=== PATIENT | male | born 1960 | race African-American/Black ===

== ENCOUNTER 2017-05-16 05:20 | Inpatient (IN) | payer SELFPAY ==
[~2017-05-16] VITALS: Ht 193 cm; Wt 86.2 kg
[2017-05-16] VITALS (17 sets, daily range): BP systolic 109–202; BP diastolic 65–130
[~2017-05-16 05:20] MED LIST: FLEXERIL PO; ULTRAM50 M1 PO
[2017-05-16 06:50] LABS: HEMATOCRIT 40.2 % (39.0-50.0); IMMATURE GRANULOCYTES 0.3 % (0.0-1.0); MEAN CORPUSCULAR HGB 30.7 pG CALC (26.0-32.0); MEAN CORPUSCULAR HGB CONC 32.3 g/L CALC (32.0-36.0); NEUT# 4.99 thou/uL (1.82-7.42); RED BLOOD COUNT 4.23 mill/uL (4.70-6.10); RED CELL DISTRI WIDTH 14.7 % (11.5-15.5)
[2017-05-16 06:59] LABS: ALBUMIN 3.5 g/dL (3.2-5.0); ALKALINE PHOSPHATASE 394 u/l (38-126); AMYLASE 62 u/l (30-110); ANION GAP 18 (6-22 (CALC)); BILIRUBIN, TOTAL 1.3 mg/dL (0.0-1.4); BUN 28 mg/dL (9-20); BUN/CREATININE RATIO 22 (12-20 (CALC)); CARBON DIOXIDE 25 mmol/l (22-30); CHLORIDE 104 mmol/l (95-108); CREATININE 1.3 mg/dL (0.7-1.3); GFR 57 ML/MIN (>=60 (CALC)); GFR FOR AFR.AMER. > 60 ML/MIN (>=60 (CALC)); LIPASE 86 u/l (23-300); POTASSIUM 4.5 mmol/l (3.5-5.1); SGOT/AST 150 u/l (17-59); SGPT/ALT 86 u/l (21-72); SODIUM 142 mmol/l (137-146); TOTAL PROTEIN 9.1 g/dL (6.3-8.2)
[2017-05-16 07:11] LABS: MYOGLOBIN 315 ng/mL (0 - 121)
[2017-05-16 07:51] LABS: URINE BILIRUBIN - DIPSTICK NEGATIVE (NEGATIVE); URINE BLOOD DIPSTICK TRACE-INTACT (NEGATIVE); URINE COLOR YELLOW; URINE GLUCOSE - DIPSTICK NEGATIVE (NEGATIVE); URINE KETONE NEGATIVE (NEGATIVE); URINE LEUK ESTERASE NEGATIVE (NEGATIVE); URINE NITRITE - DIPSTICK NEGATIVE (Negative); URINE PROTEIN - DIPSTICK 30 mg/dL (NEG-TRACE); URINE SPECIFIC GRAVITY >=1.030
[2017-05-16 07:53] LABS: URINE CLARITY SL CLOUDY
[2017-05-16 07:54] LABS: URINE EPITHELIAL CELLS FEW EPI/hpf (0-FEW); URINE MUCUS MODERATE hpf (NONE-FEW); URINE RBC 0-2 RBC/hpf (0-5)
[2017-05-16 07:56] LABS: BARBITURATES NEGATIVE (NEGATIVE); COCAINE POSITIVE (NEGATIVE); METHADONE NEGATIVE (NEGATIVE); OXCYCODONE NEGATIVE (NEGATIVE); TETRAHYDROCANNABIONOL NEGATIVE (NEGATIVE); TRICYLIC ANTIDEPRESSANTS NEGATIVE (NEGATIVE)
[2017-05-16 12:33] LABS: HEMATOCRIT 41.3 % (39.0-50.0); HEMOGLOBIN 12.8 g/dl (14.0-18.0); MEAN CELL VOLUME 99.3 fL CALC (80.0-100.0); MEAN CORPUSCULAR HGB 30.8 pG CALC (26.0-32.0); RED BLOOD COUNT 4.16 mill/uL (4.70-6.10); RED CELL DISTRI WIDTH 14.8 % (11.5-15.5)
[2017-05-16 12:47] LABS: ACT PARTIAL THROMBO TIME 30.3 SECONDS (20.0-32.5); INTERNATIONAL NORMALIZED RATIO 1.6 RATIO (0.7-1.3); PROTHROMBIN TIME 17.5 SECONDS (9.0-12.5)
[2017-05-16 12:50] LABS: ANION GAP 26 (6-22 (CALC)); BUN 29 mg/dL (9-20); BUN/CREATININE RATIO 23 (12-20 (CALC)); CHLORIDE 109 mmol/l (95-108); CREATININE 1.3 mg/dL (0.7-1.3); GFR 57 ML/MIN (>=60 (CALC)); GFR FOR AFR.AMER. > 60 ML/MIN (>=60 (CALC)); MAGNESIUM 1.7 mg/dL (1.6-2.3); POTASSIUM 4.8 mmol/l (3.5-5.1); SODIUM 143 mmol/l (137-146)
[2017-05-16 12:51] LABS: CARBON DIOXIDE 13 mmol/l (22-30)
[2017-05-16 14:11] LABS: CHOLESTEROL HDL RATIO 7.9 (<4.4 (CALC))
[2017-05-17] VITALS (20 sets, daily range): BP systolic 13–188; BP diastolic 67–107
[2017-05-17 07:13] LABS: HEMATOCRIT 41.8 % (39.0-50.0); IMMATURE GRANULOCYTES 0.2 % (0.0-1.0); MEAN CELL VOLUME 99.8 fL CALC (80.0-100.0); MEAN CORPUSCULAR HGB CONC 31.1 g/L CALC (32.0-36.0); NEUT# 4.26 thou/uL (1.82-7.42); RED BLOOD COUNT 4.19 mill/uL (4.70-6.10)
[2017-05-17 08:26] LABS: ALKALINE PHOSPHATASE 297 u/l (38-126); BILIRUBIN, TOTAL 0.9 mg/dL (0.0-1.4); BUN 21 mg/dL (9-20); BUN/CREATININE RATIO 21 (12-20 (CALC)); CHLORIDE 110 mmol/l (95-108); GFR > 60 ML/MIN (>=60 (CALC)); GFR FOR AFR.AMER. > 60 ML/MIN (>=60 (CALC)); POTASSIUM 4.3 mmol/l (3.5-5.1); SGOT/AST 126 u/l (17-59); SGPT/ALT 78 u/l (21-72); SODIUM 143 mmol/l (137-146); TOTAL PROTEIN 7.4 g/dL (6.3-8.2)
[2017-05-17 08:29] LABS: ALBUMIN 2.7 g/dL (3.2-5.0); ANION GAP 15 (6-22 (CALC)); CARBON DIOXIDE 22 mmol/l (22-30)
[2017-05-18] VITALS (14 sets, daily range): BP systolic 127–174; BP diastolic 58–107
[2017-05-18 05:06] LABS: HEMATOCRIT 39.6 % (39.0-50.0); HEMOGLOBIN 12.8 g/dl (14.0-18.0); MEAN CELL VOLUME 95.9 fL CALC (80.0-100.0); MEAN CORPUSCULAR HGB CONC 32.3 g/L CALC (32.0-36.0); RED BLOOD COUNT 4.13 mill/uL (4.70-6.10); RED CELL DISTRI WIDTH 14.9 % (11.5-15.5)
[2017-05-18 05:10] LABS: ALBUMIN 3.1 g/dL (3.2-5.0); ALKALINE PHOSPHATASE 299 u/l (38-126); ANION GAP 15 (6-22 (CALC)); BILIRUBIN, TOTAL 0.8 mg/dL (0.0-1.4); BUN 19 mg/dL (9-20); BUN/CREATININE RATIO 20 (12-20 (CALC)); CARBON DIOXIDE 27 mmol/l (22-30); CHLORIDE 106 mmol/l (95-108); CREATININE 0.9 mg/dL (0.7-1.3); GFR > 60 ML/MIN (>=60 (CALC)); GFR FOR AFR.AMER. > 60 ML/MIN (>=60 (CALC)); POTASSIUM 4.5 mmol/l (3.5-5.1); SGOT/AST 137 u/l (17-59); SGPT/ALT 75 u/l (21-72); SODIUM 143 mmol/l (137-146); TOTAL PROTEIN 8.2 g/dL (6.3-8.2)
== END 2017-05-18 22:20 | disposition short-term general hospital (02) | DRG 291 ==
LOC: ED 05:20 → ED-I 09:57 → ED 10:15 → ICU 10:16
PROVIDERS: Emergency Medicine; Nurse Practitioner Family; ADMIT Internal Medicine; ATTEND Internal Medicine
PROC: 0BH17EZ Insertion of Endotracheal Airway into Trachea, Via Natural or Artificial Opening (ICD-10-PCS; principal; 2017-05-16)
PROC: 5A1935Z Respiratory Ventilation, Less than 24 Consecutive Hours (ICD-10-PCS; 2017-05-16)
PROC: 0T9B70Z Drainage of Bladder with Drainage Device, Via Natural or Artificial Opening (ICD-10-PCS; 2017-05-16)
DX: I50.21 Acute systolic (congestive) heart failure (principal); J96.01 Acute respiratory failure with hypoxia; E87.4 Mixed disorder of acid-base balance; F14.10 Cocaine abuse, uncomplicated; E11.9 Type 2 diabetes mellitus without complications; I10 Essential (primary) hypertension; R68.0 Hypothermia, not associated with low environmental temperature; F17.210 Nicotine dependence, cigarettes, uncomplicated; I16.0 Hypertensive urgency; I48.91 Unspecified atrial fibrillation; E16.2 Hypoglycemia, unspecified; B19.20 Unspecified viral hepatitis C without hepatic coma; Z72.89 Other problems related to lifestyle
CPT/HCPCS: J2060; Q9967; S0164

== ENCOUNTER 2017-09-27 13:45 | Inpatient (IN) | payer SELFPAY ==
[~2017-09-27] VITALS: Ht 193 cm; Wt 84.9 kg
--- NOTE | 2017-09-27 14:00 | NUR ---
PT REPORTS SMOKING COCAINE THIS AM W/HX OF SAME.
[2017-09-27 14:19] LABS: HEMATOCRIT 39.9 % (39.0-50.0); HEMOGLOBIN 13.1 g/dl (14.0-18.0); IMMATURE GRANULOCYTES 0.3 % (0.0-5.0); MEAN CELL VOLUME 91.9 fL CALC (80.0-100.0); MEAN CORPUSCULAR HGB 30.2 pG CALC (26.0-32.0); MEAN CORPUSCULAR HGB CONC 32.8 g/L CALC (32.0-36.0); NEUT# 5.18 thou/uL (1.82-7.42); RED BLOOD COUNT 4.34 mill/uL (4.70-6.10); RED CELL DISTRI WIDTH 14.8 % (11.5-15.5)
[2017-09-27 14:37] LABS: ALBUMIN 3.7 g/dL (3.2-5.0); BILIRUBIN, TOTAL 1.9 mg/dL (0.0-1.4); CREATININE 1.7 mg/dL (0.7-1.3); POTASSIUM 4.2 mmol/l (3.5-5.1)
[2017-09-27 14:43] LABS: TOTAL PROTEIN 10.7 g/dL (6.3-8.2)
--- NOTE | 2017-09-27 15:00 | NUR ---
PT ADVISED OF CURRENT POC. VOICED UNDERSTANDING. CALL LIGHT WITHIN REACH.
--- NOTE | 2017-09-27 16:00 | NUR ---
PT USING URING VOIDED APPROX 2000ML X2 USE.
--- NOTE | 2017-09-27 16:46 | NUR ---
PT RESTING ON LEFT SIDE IN BED W/HEAD COVERED. REQUEST FOOD. IV SITE HEALTHY. MEDICATED FOR CONTINUED ELEVATED BP. MAEW. NO C/O PAIN. RESP EVEN AND UNLABORED/
[2017-09-27] MEDS ORDERED: FUROSEMIDE40 MG PO (16:49)
--- NOTE | 2017-09-27 17:00 | NUR ---
PT PROVIDED W/SANDWICH AND JUICE FEEDS SELF GOOD APPETITE.
[2017-09-27 17:33] LABS: BARBITURATES NEGATIVE (NEGATIVE); COCAINE POSITIVE (NEGATIVE); METHADONE NEGATIVE (NEGATIVE); OXCYCODONE NEGATIVE (NEGATIVE); TETRAHYDROCANNABIONOL NEGATIVE (NEGATIVE); TRICYLIC ANTIDEPRESSANTS NEGATIVE (NEGATIVE)
--- NOTE | 2017-09-27 19:08 | NUR ---
SECOND TROPONIN OBTAINED. PT SLEEPING RESPONDS TO VERBAL STIMULI. THIS NURSE ASKED PT IF HE WAS OUT ALL NIGHT PT STATED YES AND HE USUALLY SLEEPS DURING THE DAY.
--- NOTE | 2017-09-27 19:23 | NUR ---
INTRODUCED SELF TO PATIENT. PATIENT IS SOMNOLENT AND AROUSES WITH STIMULATION. PUPILS ARE PINPOINT. PATIENT ABLE TO SPEAK ONCE MORE AWAKE. PATIENT IS ON SINUS TACH ON THE MONITOR WITH SOME PVC AND PAC. RATE IN BETWEEN 120-136. PATIENT HAS EDEMA FROM HIS WAIST DOWN. STATES THAT HAS BEEN THERE FOR A FEW DAYS. STATES HE HAS CHF. ADMITS TO DRUG USE OVER THE LAST SEVERAL DAYS.
--- NOTE | 2017-09-27 19:25 | NUR ---
PATIENT MEDICATED WITH NORVASC. PATIENT STATES HE IS FREEXING AND WET. PATIENT FOUND TO BE SATURATED IN URINE, CLOTHING AND SHEETS ARE WET. PATIENT CLEANED, LINENS CHANGED AND GIVEN WARM BLANKET. PATIENT AWARE OF ADMISSION.
--- NOTE | 2017-09-27 19:26 | NUR ---
WHEN PATIENT'S CLOTHING WAS REMOVED HE STATED HE HAD A LARGE SUM OF DOOLEY IN HIS POCKETS. OFFERED TO HAVE MONEY PUT IN SAFE. HE STATED HE WANTED TO KEEP IT. PATIENT WITNESSED NURSE REMOVE SHORTS AND UNDERWEAR AND PLACE IN A BAG.
--- NOTE | 2017-09-27 20:05 | NUR ---
PATIENT RESTING ON STRETCHER. HAS NOT TOUCHED HIS FOOD. PATIENT IS SLEEPING BUT AROUSABLE WITH STIMULATION.
--- NOTE | 2017-09-27 20:40 | NUR ---
REPORT GIVEN TO SWETHA AQUINO IN ICU. PATIENT READIED FOR TRANSPORT TO THE FLOOR VIA STRETCHER, ON MONITOR, WITH RN.
[2017-09-27 20:56] VITALS: BP 157/97
--- NOTE | 2017-09-27 20:56 | NUR ---
57 yr old black male admitted icu7 per stretcher from er. transferred x3 to bed. bed weight obtained. vice president of recruiting shows a flutter freq pvcs. #20 lfa. iv patent. history obtained per pt & er record. oriented to room. fall precautions initiated.
[2017-09-27 21:24] VITALS: BP 157/97
--- NOTE | 2017-09-27 21:35 | NUR ---
dr silva notified of rhythm. orders rec'd.
[2017-09-27 21:39] VITALS: BP 171/85
--- NOTE | 2017-09-27 21:39 | NUR ---
rt here. ekg obtained.
[2017-09-27 21:54] VITALS: BP 149/70
[2017-09-27 22:09] VITALS: BP 119/93
--- NOTE | 2017-09-27 22:45 | NUR ---
bp 177/94. apresoline 10mg ivp given.
[2017-09-27 23:00] VITALS: BP 165/90
--- NOTE | 2017-09-27 23:00 | NUR ---
dr silva called this music writer. updated on pts condition. orders rec's.
--- NOTE | 2017-09-27 23:00 | NUR ---
bp 165/90
--- NOTE | 2017-09-27 23:05 | NUR ---
rt here. abgs drawn.
--- NOTE | 2017-09-27 23:15 | NUR ---
dr silva notified of abg results. he will put computer orders in.
--- NOTE | 2017-09-27 23:30 | NUR ---
lab here. unable to draw blood spec.
[2017-09-28] VITALS (18 sets, daily range): BP systolic 105–173; BP diastolic 57–89
--- NOTE | 2017-09-28 00:10 | NUR ---
nursing staff attempted blood draw x2 without success. major appliance assembly supervisor notified.
--- NOTE | 2017-09-28 00:30 | NUR ---
automatic machines supervisor here. blood drawn & sent to lab.
--- NOTE | 2017-09-28 00:55 | NUR ---
lab results rec'd. dr christensen notified. orders rec'd.
--- NOTE | 2017-09-28 00:55 | NUR ---
lab results rec'd.
--- NOTE | 2017-09-28 01:05 | NUR ---
dr christensen notified of lab results. orders rec'd.
--- NOTE | 2017-09-28 04:00 | NUR ---
lab here. blood drawn.
[2017-09-28 05:12] LABS: HEMATOCRIT 39.4 % (39.0-50.0); HEMOGLOBIN 13.5 g/dl (14.0-18.0); MEAN CELL VOLUME 90.2 fL CALC (80.0-100.0); MEAN CORPUSCULAR HGB 30.9 pG CALC (26.0-32.0); MEAN CORPUSCULAR HGB CONC 34.3 g/L CALC (32.0-36.0); RED BLOOD COUNT 4.37 mill/uL (4.70-6.10); RED CELL DISTRI WIDTH 15.7 % (11.5-15.5)
--- NOTE | 2017-09-28 06:00 | NUR ---
teletypesetter monitor shows a flutter pvcs.
[2017-09-28 06:49] LABS: BUN 34 mg/dL (9-20); BUN/CREATININE RATIO 26 (12-20 (CALC)); CALCULATED LDLCHOLESTEROL 67 mg/dL (62-129 (CALC)); CHLORIDE 96 mmol/l (95-108); CREATININE 1.3 mg/dL (0.7-1.3); GFR 57 ML/MIN (>=60 (CALC)); GFR FOR AFR.AMER. > 60 ML/MIN (>=60 (CALC)); HDL CHOLESTEROL 11 mg/dL (>=40); SODIUM 137 mmol/l (137-146); TOTAL TRIGLYCERIDES 76 mg/dl (30-149); VLDL CHOLESTROL 15 mg/dl (8-62 (CALC))
[2017-09-28 06:50] LABS: ANION GAP 11 (6-22 (CALC)); CARBON DIOXIDE 34 mmol/l (22-30); CHOLESTEROL HDL RATIO 8.5 (<4.4 (CALC)); TOTAL CHOLESTEROL 93 mg/dl (0-199)
--- NOTE | 2017-09-28 07:20 | NUR ---
PT RESTING IN BED WITH EYES CLOSED, AROUSE EASILY TO VERBAL STIMULI, ALERT AND ORIENTED WHEN AWAKE, AM ASSESSMENT COMPLETED, LUNGS CLEAR/DIMINSHED NO SOB OR DISTRESS NOTED, ABD WITH BSX4 TENDER TO PALPATION, PT STATES ITS A DULL ACHE THAT STARTED PRIOR TO ARRIVAL TO HOSPITAL, STATES LAST BM WAS 2 OR 3 DAYS AGO HE IS UNSURE OF EXACTLY WHEN, PT ALSO HAS GENERAL ANASARCA FROM WAIST DOWN, PPPB BUT WEAK WITH SLUGGISH CAP REFILL, DENIES N/V, SAFETY MEASURES REINFORCED, EDUCATED REGARDING THE IMPORTANCE OF ACCURATE I&O'S AND URINAL AT BEDSIDE FOR THIS PURPOSE, PT VERBALIZES UNDERSTANDING, CALL SILVESTRE WITHIN REACH, WILL MONITOR CLOSELY.
--- NOTE | 2017-09-28 07:35 | NUR ---
PT SLIGHTLY MORE AWAKE, SET UP ASSIST PROVIDED FOR AM MEAL, URINAL EMPTIED PT USED W/O INCIDENT, CALL SILVESTRE WITHIN REACH, WILL CONTINUE TO MONITOR
--- NOTE | 2017-09-28 08:24 | NUR ---
PT RESTING, TOLERATED AM MEAL W/O INCIDENT, REMINDED OF PENDING LASIX ADMIN AND AGAIN THE IMPORATNCE OF ACCURATE I&O, PT VERBALIZES UNDERSTANDING, WILL CONTINUE TO MONITOR.
--- NOTE | 2017-09-28 08:50 | NUR ---
AM CARE PROVIDED WITH SMOKED MEAT PREPARER ASSIST, BP SLIGHTLY ELEVATED AT THIS TIME, WILL ADMINSTER AM ANTIHYPERTENSIVES AND RE CHECK FREQUENTLY, EDUCATED REGARDING LASIX ADMINISTRATION AND URIANL AT BEDSIDE WITHIN REACH, CALL SILVESTRE WITHIN REACH, ENCOAURGED TO CALL FOR ANY NEEDED ASSISTANCE
[2017-09-28] MEDS ORDERED: LISINOPRIL10 MG PO (09:43)
[2017-09-28] MEDS ORDERED: COREG6.25 MG PO (09:43)
[2017-09-28] MEDS ORDERED: ALDACTONE25 MG PO (09:44)
[2017-09-28] MEDS ORDERED: XARELTO20 MG PO (09:44)
[2017-09-28] MEDS ORDERED: LASIX 20 MG TAB20 MG PO (09:44)
--- NOTE | 2017-09-28 10:20 | NUR ---
DEEPTHI STARTED PO AND AT BEDSIDE. AWARE OF PLANNED CT ABD THIS AM
--- NOTE | 2017-09-28 10:39 | NUR ---
PT TO CT VIA WC, SANCHES PASS WITH ORANGE PICKER
--- NOTE | 2017-09-28 10:56 | NUR ---
PT BACK FROM CT SCAN, BACK TO BED ALL MONITORING EQUIPMENT REAPPLIED, IVF INFUSING CALL SILVESTRE WITHIN REACH
--- NOTE | 2017-09-28 11:10 | NUR ---
RADIOLOGIST CALLED RESULTS "LARGE AMOUNT FREE AIR" NOTIFIED.
--- NOTE | 2017-09-28 11:27 | NUR ---
TO SEE PATIENT THIS AFTERNOON PER , IVF BOLUS STARTED ORDERED AND PT AWARE OF POTENTIAL FOR SURGERY, EDUCATED REGARDING NPO STARTING NOW, PT REQUESTING US TO CALL HIS MOTHER AND INFORM HER OF CURRENT SITUATION, CALL INTO MOTHER AND MESSAGE LEFT, WILL AWAIT CALL BACK.
--- NOTE | 2017-09-28 12:55 | NUR ---
O.R. STAFF AT BEDSIDE, PT TO OPERATING ROOM VIA BED.
[2017-09-28 16:57] LABS: HEMATOCRIT 35.5 % (39.0-50.0); HEMOGLOBIN 11.7 g/dl (14.0-18.0); IMMATURE GRANULOCYTES 0.5 % (0.0-5.0); MEAN CELL VOLUME 92.2 fL CALC (80.0-100.0); MEAN CORPUSCULAR HGB 30.4 pG CALC (26.0-32.0); NEUT# 9.06 thou/uL (1.82-7.42); RED BLOOD COUNT 3.85 mill/uL (4.70-6.10); RED CELL DISTRI WIDTH 14.9 % (11.5-15.5)
[2017-09-28 17:15] LABS: INTERNATIONAL NORMALIZED RATIO 1.7 RATIO (0.7-1.3); PROTHROMBIN TIME 19.7 SECONDS (9.0-12.5)
[2017-09-28 17:17] LABS: ALKALINE PHOSPHATASE 197 u/l (38-126); ANION GAP 11 (6-22 (CALC)); BILIRUBIN, TOTAL 1.6 mg/dL (0.0-1.4); BUN 27 mg/dL (9-20); BUN/CREATININE RATIO 24 (12-20 (CALC)); CARBON DIOXIDE 32 mmol/l (22-30); CHLORIDE 100 mmol/l (95-108); CREATININE 1.2 mg/dL (0.7-1.3); GFR > 60 ML/MIN (>=60 (CALC)); GFR FOR AFR.AMER. > 60 ML/MIN (>=60 (CALC)); POTASSIUM 3.7 mmol/l (3.5-5.1); SGOT/AST 57 u/l (17-59); SGPT/ALT 33 u/l (21-72); SODIUM 139 mmol/l (137-146)
[2017-09-28 17:18] LABS: ALBUMIN 2.6 g/dL (3.2-5.0); TOTAL PROTEIN 7.7 g/dL (6.3-8.2)
--- NOTE | 2017-09-28 17:55 | NUR ---
PT BACK FROM OR VIA BED, PT DROWSY BUT AROUSES TO VERBAL STIMULI, LUNGS CLEAR DIMINSHED WITH NO SHORTNESS OF BREATH OR DISTRESS NOTED, LARGE ABD DRESSING INTACT WITH SHADOWING NOTED APPROX 1.75 X 1.75 IN AT UMBILICAL AREA DRNG APPEARS SERO SANG, SHADOWING MARKED FOR FURTHER MONITORING AKILA INTACT WITH SERO SANG DRNG NOTED, NG IN R NARE ATTACHED TO LIS WITH CLEAR FLUID WITH MORGAN PARTICULATE NOTED IN SMALL AMOUNTS, SCD'S ON BILATERALLY, IV ACCESS 20G IN LEFT W AND 18G IN LEFT FA, IVF AND ABT WILL INFUSE ORDERED, O2 ON AT 3L DIFFICULTY OBTAINING PULSE OX RELATED TO NAILBEDS, BP STABLE PT AFEBRILE, TELE READING AF FLUTTER RATE IN THE 90'S, COMFORT MEASURES PROVIDED PAIN SCALE DISCUSSED PT STATES PAIN AT A 1 RIGHT NOW BUT NODS OFF EASILY NO VISISBLE S/S OF DISTRESS OR DISCOMFORT, WILL CONTINUE TO MONITOR
--- NOTE | 2017-09-28 19:30 | NUR ---
awakens easily but remains drowsy. denies acute op pain. o2 cont per nc. ngt cont to lis draining yellow. no bowel sounds. drainage marked on abd dsg. office manager shows a flutter hr 89. #20 lfa saline lock. #18 lac ns infusing @ [id number]. urinal in place. pt voided. pt asked "when am i going to eat." instructed about npo status. encouraged to tcdb. rt informed of need for is. fall precautions cont.
--- NOTE | 2017-09-28 22:00 | NUR ---
dr silva called this editorial writer. updated on pts condition. orders rec'd.
[2017-09-29] VITALS (18 sets, daily range): BP systolic 117–168; BP diastolic 63–93
--- NOTE | 2017-09-29 00:01 | NUR ---
awake. denies needs for pain meds. order takers supervisor shows a fib pvcs.
--- NOTE | 2017-09-29 02:00 | NUR ---
eyes closed. no apparent distress. security monitor shows a fib pvcs.
--- NOTE | 2017-09-29 03:45 | NUR ---
awakens easily. denies need for pain med. alicia emptied multi times tonight. drainage cloudy yellow.
--- NOTE | 2017-09-29 05:00 | NUR ---
lab here. blood drawn.
[2017-09-29 05:30] LABS: HEMATOCRIT 35.3 % (39.0-50.0); HEMOGLOBIN 11.9 g/dl (14.0-18.0); IMMATURE GRANULOCYTES 0.5 % (0.0-5.0); MEAN CELL VOLUME 90.5 fL CALC (80.0-100.0); MEAN CORPUSCULAR HGB 30.5 pG CALC (26.0-32.0); MEAN CORPUSCULAR HGB CONC 33.7 g/L CALC (32.0-36.0); NEUT# 7.57 thou/uL (1.82-7.42); RED BLOOD COUNT 3.9 mill/uL (4.70-6.10); RED CELL DISTRI WIDTH 14.8 % (11.5-15.5)
[2017-09-29 05:44] LABS: ALBUMIN 2.5 g/dL (3.2-5.0); ALKALINE PHOSPHATASE 174 u/l (38-126); ANION GAP 14 (6-22 (CALC)); BILIRUBIN, TOTAL 1.5 mg/dL (0.0-1.4); BUN 27 mg/dL (9-20); BUN/CREATININE RATIO 22 (12-20 (CALC)); CARBON DIOXIDE 28 mmol/l (22-30); CHLORIDE 102 mmol/l (95-108); CREATININE 1.2 mg/dL (0.7-1.3); GFR > 60 ML/MIN (>=60 (CALC)); GFR FOR AFR.AMER. > 60 ML/MIN (>=60 (CALC)); POTASSIUM 4.1 mmol/l (3.5-5.1); SGOT/AST 61 u/l (17-59); SGPT/ALT 29 u/l (21-72); SODIUM 140 mmol/l (137-146); TOTAL PROTEIN 7.5 g/dL (6.3-8.2)
[2017-09-29 05:52] LABS: INTERNATIONAL NORMALIZED RATIO 1.4 RATIO (0.7-1.3); PROTHROMBIN TIME 15.4 SECONDS (9.0-12.5)
--- NOTE | 2017-09-29 07:15 | NUR ---
PT RESTING IN BED WITH EYES CLOSED, AROUSE EASILY TO VERBAL STIMULI, ALERT AND ORIENTED WHEN AWAKE, AM ASSESSMENT COMPLETED, LUNGS CLEAR/DIMINSHED NO SOB OR DISTRESS NOTED, ABD WITH BSX4 HYPOACTIVE AND DRESSING CLEAN DRY AND INTACT, NO FUSRTHER SHADOWING NOTED ON ABD DRSG, AKILA INTACT WITH SERO SANG CLOUDY DRNG, PT CONTINUES TO HAVE GENERAL ANASARCA FROM WAIST DOWN BUT IMPROVED OVER PREVIOUS DAYS, PPPB BUT WEAK WITH SLUGGISH CAP REFILL, DENIES N/V, NG INTACT IN R NARE TO LIS, SOME PALE GREEN CLOUDY DRAINAGE NOTED OUT, SAFETY MEASURES REINFORCED, REINFORCED EDUCATION REGARDING THE IMPORTANCE OF ACCURATE I&O'S AND URINAL AT BEDSIDE FOR THIS PURPOSE, PT VERBALIZES UNDERSTANDING, CALL SILVESTRE WITHIN REACH, WILL MONITOR CLOSELY.
--- NOTE | 2017-09-29 07:50 | NUR ---
AKILA EMPTIED, PT ANSWERS QUESTIONS APPROPRIATELY, DENIES NEED FOR PAIN MEDICAITON, EDCUATED REGARDING PLAN OF CARE FOR TODAY INCLUDING OOB, AMBULATION AND INCREASED INCENTIVE SPIROMETER USAGE, PT VERBALIZES UNDERSTANDING, WILL REINFORCE PRN.
--- NOTE | 2017-09-29 08:58 | NUR ---
PT DOZING, CALL SILVESTRE WITHIN REACH, NO S/S OF PAIN OR DISTRESS NOTED
--- NOTE | 2017-09-29 09:05 | NUR ---
S: PIA SUTTON is a 57 M who presents with a perforated viscus. He has a history of diabetes, hypertension, and congestive heart failure. All medications in patient's chart were reviewed. O: VS: BP 128/67, P 78, RR 22 ,T 98.9 W 79.832 kg , HT 193.04 cm, Scr=1.2, CrCl= 76.69 ml/min A: Wound culture shows no growth within 24 hours. P: Patient is on Zosyn 3.375 gm IV q6h. Vancomycin ordered for pharmacy to dose. Start Vancomycin 1 gm IV Q12H. Vancomycin trough is drawn before the 4th dose on 09/30/17 at 0530. Vancomycin goal trough is between 15-20 mcg/ml. Pharmacy will follow and or advise on antibiotics use as needed.
--- NOTE | 2017-09-29 09:20 | NUR ---
IN TO SEE PATIENT, DISCUSSED PLAN OF CARE, CALL SILVESTRE WITHIN REACH, WILL CONTINUE TO MONITOR.
--- NOTE | 2017-09-29 09:45 | NUR ---
PT OOB TO RECLINER AT BEDSIDE, AMBULATED IN PLACE FOR APPROX 50 STEPS, DRESSING TO ABD REMAINS INTACT, AKILA EMPTIED OF 70 ML CLOUDY YELLOW DRNG, CALL SILVESTRE WITHIN REACH, BP REMAINS STABLE MEDICATED FOR PAIN AFTER ACTIVITY AT PT REQUEST, WILL CONTINUE TO MONITOR.
--- NOTE | 2017-09-29 10:57 | NUR ---
PT REMAINS SITTING UP IN RECLINER, AKILA EMPITED, VS STABLE CALL SILVESTRE WITHIN REACH, WILL CONTINUE TO MONITOR.
--- NOTE | 2017-09-29 11:35 | NUR ---
ACCU CHECK 40, AMP D50 ADMINISTERED PER ORDERS. NOTIFIED NEW ORDERS REC'D. WILL CONTINUE TO MONITOR
--- NOTE | 2017-09-29 11:35 | NUR ---
INTO SEE PATIENT, EDUCATED REGARDING NPO, NG, DESSING CHANGES ETC...VERBAL ORDER TO GIVE ONE LITER NS BOLUS THEN CHANGE TO IVF AT REATE ORDERED BY . CALL SILVESTRE WITHIN REACH, PT CONTINUES TO TOLERATE SITTING UP IN RECLINER, WILL CONTINUE TO MONITOR.
--- NOTE | 2017-09-29 12:30 | NUR ---
RECHECK BS ACCU CHECK 113, PT HAD SHORT PERIOD OF JACI CARDIA STRIPS ON CHART, NOTIFIED
--- NOTE | 2017-09-29 13:10 | NUR ---
pt remains sitting up in recliner, offers no new complaints, call zamora within reach, IVF bolus continues, will continue to monitor.
--- NOTE | 2017-09-29 14:35 | NUR ---
pt back to bed with mod assist, ambulated in place approx 30 steps, tolerated activity well, Denies need for pain medication, back to bed and repositioned for comfort, Call noah wheeler, AKILA drainaed again and charged, IV bolus complete earlier and D5NS infusing at prescribed rate, continues to have occasional short bursts of bradycardia, already aware, will continue to monitor.
--- NOTE | 2017-09-29 15:42 | NUR ---
Pt resting in bed with eyes closed, no s/s of distress, continues to have short intermittent burst of bradycardia, lowest rate 42 seen at this time, pt denies symptoms, call zamora within reach, will continue to monitor.
--- NOTE | 2017-09-29 16:06 | NUR ---
WARMING BLANKET APPLIED FOR TEMP 95.6 AND PT COMFORT
--- NOTE | 2017-09-29 16:50 | NUR ---
PT RESTING IN BED, WARMER REMAINS INUSE, PT RATETS FEELING BETTER TEMP 96.4 TYMPANIC, WILL CONTINUE TO MONITOR
--- NOTE | 2017-09-29 18:22 | NUR ---
MOUTH CARE PROVIDED AND COMFORT MEASURES PROVIDED, PT CONTINUES TO DENY NEED FOR PAIN MEDICATION AT THIS TIME, REINFROCED THE IMPORTANCE/ REASONING BEHIND NPO, PT VERBALIZES FRUSTRATION BUT UNDERSTANDING, CALL SILVESTRE WITHIN REACH, IVF AND ABT CONTINUE ORDERED, WILL CONTINUE TO MONITOR.
--- NOTE | 2017-09-29 19:40 | NUR ---
PT. FOUND RESTING IN BED WITH EYES CLOSED. AWAKENS TO LIGHT VERBAL STIMULI. PT. DENIES COMPLAINTS OF NEED AT THIS TIME. STATES HE IS "STARVING". PT. EXPLAINED NEED TO REMAIN NPO AT THIS TIME AND WHY BECAUSE OF HIS RECENT SURGERY AND NEED FOR GI REST. RESPS SLOW, SHALLOW, UNLABORED AT THIS TIME. PT. ENCOURAGED TO UTILIZE INCENTIVE SPIROMETER. TRACE LOWER EXT EDEMA, PULSES WEAK BILAT LOWER EXT. SCD'S IN PLACE AT THIS TIME. PT. USES URINAL NEEDED. IV VANCO INFUSING AT THIS TIME WITHOUT REACTION NOTED. IV FLUIDS CONTINUE TO INFUSE WELL. LUNGS CTA, DIMINISHED BASES. CALL LIGHT WITHIN REACH. BOWEL SOUNDS HYPOACTIVE AT THIS TIME. GREEN/YELLOW OUTPUT NOTED FROM NG TUBE. WARM AIR PROVIDED PER PT. REQUEST OF BEING COLD. HR ELEVATED AT 110, OCCASIONALLY TRIGEMINY. STATES HIS PAIN IS UNDER CONTROL AND RATES IT A 3/10. AKILA DRAIN PATENT, INTACT AND DRAINING SANGUENOUS FLUID AT THIS TIME. WILL CONTINUE TO ASSESS.
--- NOTE | 2017-09-29 19:50 | NUR ---
REPORT FROM Sahra SALDIVAR RN. ASSUMED PT. CARE.
--- NOTE | 2017-09-29 20:45 | NUR ---
ACCUCHECK NOW 77. AFEBRILE AT 97.7. DENIES COMPLAINTS OF PAIN. AKILA DRAINED OF 65 CC SANGUENOUS FLUID AT THIS TIME. URINAL EMPTIED OF 150 CC MICKEY COLORED URINE.
--- NOTE | 2017-09-29 21:30 | NUR ---
PT. REPOSITIONED FOR COMFORT. SLID UP IN BED AT THIS TIME. WILL CONTINUE TO ASSESS FOR COMFORT AND PAIN.
--- NOTE | 2017-09-29 22:45 | NUR ---
PT. RESTING IN BED WITH EYES CLOSED. REMAINS EASILY AROUSABLE. IV FLUIDS CONTINUE TO INFUSE. HR REMAINS SLIGHTLY ELEVEATED, BP STABLE AT THIS TIME. CALL LIGHT REMAINS WITHIN REACH. WILL CONTINUE TO ASSESS.
[2017-09-30] VITALS (17 sets, daily range): BP systolic 115–175; BP diastolic 71–110
--- NOTE | 2017-09-30 00:05 | NUR ---
ACCUCHECK NOW 88. LT. UPPER FOREARM SWELLING NOTED. LT. FOREARM 18 PLACED BY OR REMOVED AT THIS TIME. LOWER #20 TO FA REMAINS PATENT WITH BLOOD RETURN AND EASY FLUSH, BUT DOES CAUSE DISCOMFORT DUE TO THE SWELLING/TIGHTNESS ABOVE SITE. PT. REPOSITIONED TO RT. SIDE. STATES WITH CRAMPING TYPE PAIN TO RT. SIDE OF ABDOMEN. REMAINS IN A-FIB AT THIS TIME. CALL LIGHT REMAINS WITHIN REACH. STATES 6/10 PAIN AT THIS TIME. WILL CONTINUE TO MONITOR AND MEDICATE NEEDED. IV FLUIDS CHANGED TO RT. FA WHERE A NEW IV WAS PLACED BY THIS RN. SEE DOCUMENTATION. WILL CONTINUE TO ASSESS.
--- NOTE | 2017-09-30 01:50 | NUR ---
PT. ASSISTANT BUYER LIGHT AT THIS TIME. PT. WAS SLEEPING AND ACCIDENTALLY PULLED OUT HIS NG TUBE WHEN MOVING HIS ARM. STATES HE THINKS HIS THUMB HOOKED IT WHILE TURNING OVER. DENIES NAUSEA AT THIS TIME. STATES HIS PAIN IS MUCH BETTER CONTROLLED AT THIS TIME. WILL NOTIFY PHYSICIAN OF NG TUBE COMING OUT.
--- NOTE | 2017-09-30 02:30 | NUR ---
PT. RESTING WITH EYES CLOSED. REMAINS EASILY AROUSABLE. CONTINUES WITH WARM AIR PER HIS REQUEST. REMAINS AFEBRILE. BP/HR STABLE. CALL LIGHT REMAINS WITHIN REACH. WILL CONTINUE TO ASSESS.
--- NOTE | 2017-09-30 04:00 | NUR ---
PT. REMAINS AFEBRILE. RESTING SUPINE IN NO DISTRESS. CONTINUES TO DENY NAUSEA AT THIS TIME. VSS. REMAINS AFIB IN THE 80-90'S. CALL LIGHT REMAINS WITHIN REACH. WILL CONTINUE TO ASSESS.
--- NOTE | 2017-09-30 04:40 | NUR ---
PT. C/O 10/08 PAIN TO RT. ABD AT THIS TIME. AKILA STRIPPED AND 130 CC DRAINAGE REMOVED AT THIS TIME. WILL MEDICATE PER PHYSICIAN ORDERS.
--- NOTE | 2017-09-30 04:40 | NUR ---
LABS DRAWN AT THIS TIME.
[2017-09-30 05:10] LABS: HEMATOCRIT 35.3 % (39.0-50.0); HEMOGLOBIN 11.8 g/dl (14.0-18.0); MEAN CELL VOLUME 90.7 fL CALC (80.0-100.0); MEAN CORPUSCULAR HGB 30.3 pG CALC (26.0-32.0); MEAN CORPUSCULAR HGB CONC 33.4 g/L CALC (32.0-36.0); RED BLOOD COUNT 3.89 mill/uL (4.70-6.10)
[2017-09-30 05:22] LABS: ANION GAP 9 (6-22 (CALC)); BUN 24 mg/dL (9-20); BUN/CREATININE RATIO 22 (12-20 (CALC)); CARBON DIOXIDE 30 mmol/l (22-30); CHLORIDE 104 mmol/l (95-108); CREATININE 1.1 mg/dL (0.7-1.3); GFR FOR AFR.AMER. > 60 ML/MIN (>=60 (CALC)); MAGNESIUM 1.6 mg/dL (1.6-2.3); POTASSIUM 3.7 mmol/l (3.5-5.1); SODIUM 139 mmol/l (137-146)
[2017-09-30 05:38] LABS: GFR > 60 ML/MIN (>=60 (CALC))
--- NOTE | 2017-09-30 05:57 | NUR ---
PT. ACCUCHECK WAS 107 ON THE LAB DRAW. NO INSULIN TO BE GIVEN AT THIS TIME.
--- NOTE | 2017-09-30 06:15 | NUR ---
DR. SMITH CALLED AT THIS TIME. UPDATED ON STATUS OF PATIENT AND THAT HIS NG TUBE WAS ACCIDENTALLY DISLODGED AT 0200. INFORMED OF BOWEL SOUNDS PRESENT THROUGHOUT AND NO COMPLAINTS OF NAUSEA OR EMESIS SINCE. PER DR. SMITH, PT. MAY REMAIN WITHOUT NG TUBE, BUT KEEP NPO. PT. UPDATED AND INFORMED OF STRICT NPO STATUS OR HE MAY NEED TO HAVE THE NG TUBE REPLACED. WILL CONTINUE TO ASSESS. ZOSYN INFUSING AT THIS TIME WITHOUT REACTION. LT. FOREARM SWELLING HAS SUBSIDED AND PT. STATES WITH LESS DISCOMFORT TO LT. FA.
--- NOTE | 2017-09-30 07:15 | NUR ---
PT RESTING IN BED WITH EYES CLOSED, AROUSE EASILY TO VERBAL STIMULI, ALERT AND ORIENTED WHEN AWAKE, AM ASSESSMENT COMPLETED, LUNGS CLEAR/DIMINSHED NO SOB OR DISTRESS NOTED, TELE READING A FIB RATE IN THE 80'S WITH FREQUENT PVC'S, ABD WITH BSX4 SLIGHTLY HYPOACTIVE AND DRESSING CLEAN DRY AND INTACT, NO FUSRTHER SHADOWING NOTED ON ABD DRSG, AKILA INTACT WITH LARGE AMOUNTS SEROUS DRNG, PT CONTINUES TO HAVE GENERAL ANASARCA FROM WAIST DOWN UNCHANGED FROM YESTERDAY, PPPB BUT WEAK WITH SLIGHTLY SLUGGISH CAP REFILL, SCD'S ON BILATERALLY, DENIES N/V, NG OUT DURING PREVIOUS SHIFT, MD AWARE REINFORCED THE IMPORTANCE AND REASON FOR STRICT NPO, SAFETY MEASURES REINFORCED, ALSO REINFORCED EDUCATION REGARDING THE IMPORTANCE OF ACCURATE I&O'S AND URINAL AT BEDSIDE FOR THIS PURPOSE, PT VERBALIZES UNDERSTANDING, CALL SILVESTRE WITHIN REACH, WILL MONITOR CLOSELY.
--- NOTE | 2017-09-30 07:35 | NUR ---
MOUTH CARE PROVIDED AND LIP MOISTURIZER APPLIED FOR PT COMFORT, CALL SILVESTRE WITHIN REACH, PT REPOSITIONED SELF FOR COMFORT.
--- NOTE | 2017-09-30 08:47 | NUR ---
IN TO SEE PATIENT PLAN OF CARE DISCUSSED AWARE OF HELD COREG RELATED TO STRICT NPO, CALL SILVESTRE WITHIN REACH.
--- NOTE | 2017-09-30 10:00 | NUR ---
MOUTH CARE PROVIDED FOR COMFORT, AKILA EMPTIED OF LARGE AOMUNT SEROUS DRANG, PT TOLERATES WELL, DOZIES INTERMITTENLY BUT AROUSES EASILY TO VERBAL STIMULI, CALL SILVESTRE WITHIN REACH.
--- NOTE | 2017-09-30 11:30 | NUR ---
AKILA EMPTIED OF MODERATE AMOUNT SEROUS DRAINAGE, PT THEN OOB WITH ONE MOD ASSIST, AMBULATED ON UNIT TO ROOM ONE, ASSIGNMENT CHANGED FOR PT COMFORT, ALL BELONGINGS WITH PATIENT, TOLERATED ACTIVITY WELL, WILL CONTINUE TO MONITOR. COMFORT MEASURES PROVIDED, PT REPOSITIONS SELF, CALL SILVESTRE WITHIN REACH
--- NOTE | 2017-09-30 12:29 | NUR ---
AKILA EMPTIED OF 90 ML SEROUS DRNG, VISITOR AT BEDSIDE, OFFERS NO NEW COMPLAINTS, CALL SILVESTRE WITHIN REACH
--- NOTE | 2017-09-30 12:37 | NUR ---
VISITOR LEAVING A THIS TIME, CALL SILVESTRE WITHIN REACH, PT EDUCATED REGARDING PLAN TO GET OOB AND DO ADL CARE AND AMBULATE AGAIN, EDUCATED REGARDING THE IMPORTANCE OF INCREASED ACTIVITY WITH REGARDS TO HEALING AND RECOVERY, VERBALIZES UNDERSTANDING ADN AGREEANCE, WILL CONTINUE TO MONITOR.
--- NOTE | 2017-09-30 13:15 | NUR ---
PT RESTING, AKILA CONTINUES TO DRAIN LARGE AMOUNTS SEROUS DRNG, DRSG TO ABD REMAINS UNCHANGED, TELE CONTINUES A FIB RATE IN THE 70-80'S WITH FREQUENT PVC'S NO JACI NOTED LIKE YESTERDAY, WILL CONTINUE TO MONITOR.
--- NOTE | 2017-09-30 14:15 | NUR ---
PT GIVEN COMPLETE BED BATH WITH PARTIAL ASSIST FROM PT, LINENS CLEAN AND NEW SOCKS AND GOWN APPLIED, PT TOLERATED WELL, WILL MEDICATE FOR COMPLAINTS OF PAIN, THEN ALLOW PT RET, PT AWARE OF PLAN TO WALK AT 1600 AND VERBALIZES AGREEANCE, CALL SILVESTRE WITHIN REACH
--- NOTE | 2017-09-30 14:35 | NUR ---
PT TALKING ON TELEPHONE, STATES PAIN TOLERABLE SINCE MEDICATION RECENTLY, WILL CONTINUE TO MONITOR.
--- NOTE | 2017-09-30 15:40 | NUR ---
PT RESTING IN BED, OFFERS NO NEW COMPLAINTS, AWARE OF PLAN TO AMBULATE AT 1600, IVF CONTINUE ORDERED, WILL CONTINUE TO MONITOR
--- NOTE | 2017-09-30 16:15 | NUR ---
PT AMBULATED AROUND NURSES STATION WITH STEADY GAIT AND TOLERATED ACTIVITY WELL, AKILA CONTINUES TO DRAIN LARGE AMOUNTS SANGUINOUS FLUID W/O INCIDENT, BP SLIGHTYL ELEVATED AND AWARE, DENIES NEED FOR PAIN MEDICATION, WILL CONTINUE TO MONITOR.
--- NOTE | 2017-09-30 17:18 | NUR ---
PT RESTING IN BED, DOZES INTERMITTENTLY, OFFERS NO NEW COMPLAINTS, CALL SILVESTRE WITHIN REACH, WILL CONTINUE TO MONITOR.
--- NOTE | 2017-09-30 18:00 | NUR ---
IV ABT CONTINUE ORDERED, IV ACCESSES INTACT NO REDNESS OR EDEMA NOTED AT INSERT SITES, DENIES NEED FOR PAIN MEDICATION, CALL SILVESTRE WITHIN REACH, WILL CONTINUE TO MONITOR.
--- NOTE | 2017-09-30 20:00 | NUR ---
1899-REPORT FROM NÉSTOR JARA. INTRODUCED SELF TO PT, NO COMPLAINTS OR NEEDS VOICED AT THIS TIME, BP ELEVATED TO 154/110, AFIB ON MONITOR, HR STABLE. VANCOMYCIN DUE AT 1899, WAITING FOR VANCO TROUGH TO INFUSE IT. 1999-PT C/O PAIN TO ABDOMEN, BURNING, RATES IT AT 8/10, MEDICATED WITH MORPHINE PER ORDERS, VANCO INFUSING WITHOUT DIFFICULTY, X2 IV SITES PATENT NO S/S OF INFILTRATION, FLUSHED THEM WITHOUT DIFFICULTY, PT ABD DRESSING IS CDI, NO INCREASED SHADOWING NOTED FROM PREVIOUSLY MARKED LINE, AKILA IS DRAINING SEROSANGUINEOUS FLUID, EMPTIED 70ML AT THIS TIME, +1 EDEMA NOTED TO BILAT HIPS AND LEGS, PT STATES "I'M COLD." PROVIDED EXTRA WARM BLANKETS, FEET AND HANDS ARE COLD TO TOUCH, PORTABLE PULSE OX READING 89%, PT C/O OF FEELING SOB, PROVIDED WITH 2LPM VIA NC O2, TEMP IS 97.0, PT REPOSITIONED SELF, EDUCATED ABOUT SAFETY MEASURES, POC, MED SCHEDULE, VOICES UNDERSTANDING, PT IS NPO, EDUCATED ABOUT RATIONALE OF BEING NPO, SCD'S IN PLACE, NO OTHER NEEDS REPORTED, WILL CONTINUE TO MONITOR CLOSELY. CALL SILVESTRE WITHIN REACH.
--- NOTE | 2017-09-30 22:30 | NUR ---
PT DENIES PAIN, C/O PAIN AT MOVEMENT, MANUAL BP 154/98, REMAINS AFIB HR STABLE WITH FREQUENLTY PVC'S, NO DISTRESS NOTED, PORTABLE PULSE OX READING 94%, WILL CONTINUE TO MONITOR, EMPTIED URINAL, CONCENTRATED YELLOW URINE 100CC. DRESSING TO ABD REMAINS CDI, EMPTIED 100ML FROM AKILA. ENCOURAGED TO REPOSITINING FOR COMFORT, PT REPOSITION SELF. NO OTHER NEEDS REPORTED.
[2017-10-01] VITALS (15 sets, daily range): BP systolic 125–178; BP diastolic 54–115
--- NOTE | 2017-10-01 00:33 | NUR ---
PT C/O BURNING PAIN TO ABD, MEDICATED WITH MORPHINE IV PER ORDERS, RATES IT AT 5/10, NO DISTRESS NOTED, RESP ARE EVEN AND UNLABORED, BP 167/88 AT THIS TIME, MONITOR SHOWS AFIB WITH FREQ PVC'S, HR 81 AT THIS TIME, REPOSTIONED FOR COMFORT, DRESSING REMAINS CDI, NO CHANGES NOTED FROM PREVIOUS ASSESSMENT, AKILA DRAINING SEROSANGUINEOUS FLUID, EMPTIED 90CC AT THIS TIME, ZOSYN INFUSING PER ORDERS WITHOUT DIFFICULTY, WILL CONTINUE TO MONITOR, CALL SILVESTRE AT REACH.
--- NOTE | 2017-10-01 02:04 | NUR ---
PT RESTING IN BED WITH EYES CLOSED, EASILY AROUSES TO VERBAL STIMULI, RATES PAIN AT 2/10, NO NEEDS OR COMPLAINTS REPORTED, VSS, AFIB ON MONITOR WITH FREQ PVC'S, HR 80. VOIDED 100CC AT THIS TIME, EMPTIED 90CC FROM AKILA, DRESSING TO ABD LOOKS CDI, REPOSITIONED FOR COMFORT.
--- NOTE | 2017-10-01 03:10 | NUR ---
PT IS RESTING IN BED WITH EYES CLOSED, AROUSES TO STIMULI, NO DISTRESS NOTED, REPORTS NO PAIN OR NEEDS AT THIS TIME, WILL CONTINUE TO MONITOR CLOSELY.
--- NOTE | 2017-10-01 05:25 | NUR ---
PT IS AWAKE, OFFERED TO ASSSIT WITH WASHING UP, DECLINES, STATES "LATER." REPOSITIONED FOR COMFORT, EMPTIED URINAL AND AKILA, SEE INTERVENTIONS FOR DETAILS, RATES ABD PAIN AT 2/10, DENIES NEED FOR PAIN MEDICATION, VSS, AFEBRILE, D5NS INFUSING AT 100ML/HR WITHOUT INCIDENT, AFIB ON MONITOR WITH PVC'S AND HR STABLE, WILL CONTINUE TO MONITOR CLOSELY.
--- NOTE | 2017-10-01 06:24 | NUR ---
PT IS RESTING IN BED, DOZING INTERMITTENTLY, REPORTS NO PAIN, REFUSES TO REPOSITION AT THIS TIME, VOIDED TOTAL OF 500CC AND AKILA DRAINING TOTAL OF 540CC PM SHIFT. FINGER STICK ACCU CHECK 91.
--- NOTE | 2017-10-01 07:05 | NUR ---
PT RESTING IN BED WITH EYES CLOSED, AROUSE EASILY TO VERBAL STIMULI, ALERT AND ORIENTED WHEN AWAKE, AM ASSESSMENT COMPLETED, LUNGS CLEAR/DIMINSHED NO SOB OR DISTRESS NOTED, TELE READING A FIB RATE IN THE 80'S WITH FREQUENT PVC'S, ABD WITH BSX4 SLIGHTLY HYPOACTIVE AND DRESSING CLEAN DRY AND INTACT, STILL NO FURTHER SHADOWING NOTED ON ABD DRSG, AKILA INTACT CONTINUES TO HAVE LARGE AMOUNTS SEROUS DRNG (SEE I&O FOR DETAILS), PT CONTINUES TO HAVE GENERAL ANASARCA FROM WAIST DOWN MINIMALLY LESS THAN YESTERDAY, PPPB BUT WEAK WITH SLIGHTLY SLUGGISH CAP REFILL, SCD'S ON BILATERALLY, DENIES N/V, PT AGITATED ABOUT NO FOOD AND STRICT NPO STATUS REINFORCED EDUCATION REGARDING THE IMPORTANCE AND REASON FOR STRICT NPO, SAFETY MEASURES REINFORCED, ALSO REINFORCED EDUCATION REGARDING THE IMPORTANCE OF ACCURATE I&O'S, URINAL REMAINS AT BEDSIDE AND WITHIN PT REACH, PLAN OF CARE DISCUSSED INCLUDING OOB AMBULTION TODAY, PT AGREES AND VERBALIZES UNDERSTANDING, CALL SILVESTRE WITHIN REACH, WILL MONITOR CLOSELY.
--- NOTE | 2017-10-01 07:25 | NUR ---
PT ALSO HAS SOME GROSS SCROTAL EDEMA TODAY, GREATLY INCREASED OVER YESTERDAY. COMFORT MEASURES PROVIDED PT REFUSED ELEVATION, WILL CONTINUE TO MONITOR.
--- NOTE | 2017-10-01 07:32 | NUR ---
IV ABT INFUSING, PHLEBOTOMY AT BEDSIDE EARLIER TO DRAW FOR LABS ORDERED, PT TOLERATES WELL, CALL SILVESTRE WITHIN REACH, PT REPOSITIONS SELF FOR COMFORT, DENIES NEED FOR PAIN MED AT THIS TIME, WILL CONTINUE TO MONITOR.
[2017-10-01 07:48] LABS: ALBUMIN 2.6 g/dL (3.2-5.0); ALKALINE PHOSPHATASE 164 u/l (38-126); ANION GAP 14 (6-22 (CALC)); BILIRUBIN, TOTAL 1.5 mg/dL (0.0-1.4); BUN 23 mg/dL (9-20); BUN/CREATININE RATIO 20 (12-20 (CALC)); CARBON DIOXIDE 25 mmol/l (22-30); CHLORIDE 110 mmol/l (95-108); CREATININE 1.1 mg/dL (0.7-1.3); GFR > 60 ML/MIN (>=60 (CALC)); GFR FOR AFR.AMER. > 60 ML/MIN (>=60 (CALC)); POTASSIUM 3.7 mmol/l (3.5-5.1); SGOT/AST 47 u/l (17-59); SGPT/ALT 26 u/l (21-72); SODIUM 145 mmol/l (137-146); TOTAL PROTEIN 7.9 g/dL (6.3-8.2)
--- NOTE | 2017-10-01 08:35 | NUR ---
PT OOB WITH MIN ASSIST, AMBULATED WROUND UNIT, BACK TO ROOM WITH STEADY GAIT, REPEATEDLY COMPLAINS OF DRY MOUTH AND REQUESTING LIQUID, REINFORCED NPO, MOUTH CARE PROVIDED, ONCE BACK IN ROOM PT REQUESTED BSC, PROVIDED, PT CALLED WHEN "DONE" NO BM STATES "JUST AIR" NO FLATTUS WITNESSED BY THIS NURSE, PT ASSISTED TO RECLINER AT BEDSIDE, CALL SILVESTRE WITHIN REACH
--- NOTE | 2017-10-01 09:51 | NUR ---
PT REMAINS SITTING UP IN RECLINER, DOZES INTERMINTTENLY, NO S/S OF IDSTRESS OR DISCOMFORT, CALL SILVESTRE WITHIN REACH
--- NOTE | 2017-10-01 11:19 | NUR ---
PT BACK TO BED WITH MIN ASSIST, TOLERATED ACTIVITY WELL, COMFORT MEASURES PROVIDED, WILL CONTINUE TO MONITOR.
--- NOTE | 2017-10-01 12:45 | NUR ---
PT RESTING IN BED, NO S/S OF IDSTRESS OR DISCOMFORT NOTED, AKILA CONTINUES TO DRAIN LARGE AMOUNTS SEROUS DRNG, DOZES INTERMITTENLY, CALL SILVESTRE WITHIN REACH, WILL CONTINUE TO MONITOR.
--- NOTE | 2017-10-01 14:00 | NUR ---
PT RESTING IN BED WITH EYES CLOSED, NO S/S OF DISTRESS, CALL SILVESTRE WITHIN REACH, NO SHORTNESS OF BREATH NOTED, PT HAS O2 ON AT 2L AT THIS TIME, CALL SILVESTRE WITHIN REACH, WILL CONTINUE TO MONITOR.
--- NOTE | 2017-10-01 14:55 | NUR ---
PT RESTING IN BED, VS STABLE, AFEBRILE, NO S/S OF DISTRESS CALL SILVESTRE WITHIN REACH, WILL CONTINUE TO MONITOR
--- NOTE | 2017-10-01 16:04 | NUR ---
PT OOB AMBULATED [facility] STATION WITH ONE ASSIST, TOLERATES ACTIVITY WELL, CONTINUES TO VERBALIZES AGGRAVATION WITH NPO STATUS, IMPORTANCE OF NPO REINFORCED, MOUTH CARE PROVIDED, IV ABT INFUSING ORDERED, BACK TO BED REPOSITIONS SELF FOR COMFORT, CALL SILVESTRE WITHIN REACH, WILL CONTINUE TO MONITOR.
--- NOTE | 2017-10-01 17:17 | NUR ---
PT DOZING INTERMITTENLY, CONTINUE TO EMPTY AKILA DRAIN PRN, COMFORT MEASURES PROVIDED, CALL SILVESTRE WITHIN REACH, AARTI FROM CASE MGMT AT BEDSIDE
--- NOTE | 2017-10-01 18:15 | NUR ---
PT REMAINS RESTING IN BED, ALERT AND ORIENTED, NO NEW COMPLAINTS, AKILA CONTINUES TO DRAINA SANGUINOUS DRNG, CALL SILVESTRE WITHIN REACH, WILL CONTINUE TO MONITOR.
--- NOTE | 2017-10-01 19:00 | NUR ---
awake. denies op pain but does admit "i'm hungry. i haven't had anything for 5 days." bowel sounds hypoactive. abd dsg has old marked drainage. alicia draining clear yellow. equipment monitor phototypesetting shows a fib. #20 lfa saline lock. #20 rfa d5ns infusing @ 100cchr. voids per urinal. urine reinaldo colored. encouraged to tcdb & use is. fall precautions cont.
--- NOTE | 2017-10-01 21:35 | NUR ---
turned self with encouragement then c/o op pain. zofran 4mg ivp & morphine 2mg ivp given.
--- NOTE | 2017-10-01 22:00 | NUR ---
eyes closed. no distress.
[2017-10-02] VITALS (15 sets, daily range): BP systolic 112–180; BP diastolic 50–108
--- NOTE | 2017-10-02 00:01 | NUR ---
awake. no c/o voiced. athletic monitor shows a sib pvcs.
--- NOTE | 2017-10-02 02:00 | NUR ---
resting quietly. resps even & unlabored. no apparent distress.
--- NOTE | 2017-10-02 04:00 | NUR ---
eyes closed. no distress. awake overnight monitor shows a fib pvcs.
--- NOTE | 2017-10-02 05:30 | NUR ---
awake. watching tv. no distress. monitoring and evaluation advisor shows a fib pvcs.
--- NOTE | 2017-10-02 07:38 | NUR ---
pt awake in bed; no distress noted; pt offers no complaints; assessment completed at this time; pt alert and oriented; denies pain; admits to some nausea/ no vomiting noted; resp even and unlabored; lungs clear/ diminished bases; skin color wnl; o2 per nc; gum machine filler cough noted; hr irreg; afib/ pvcs on monitor; generalized edema noted; doppler pedal pulses; scrotum edema noted; bilat scd's intact; abd firm/ nondistended with bs hypoactive; no bm noted per production underwriter; pt admits to passing flatus; voiding clear reinaldo urine without pain or burning; urine noted in small amount; urinal at bedside; #20 in rfa patent with ivf infusing without complication; #20 to lfa saline locked; no redness or edema noted at sites; abd dressing cdi/ old shadowing/circled drainage noted; alicia to right abd with serous drainage; alicia stripped and empited at this time; coughing, deep breathing and repositioning strongly encouraged; IS at bedside with poor effort of usage noted; repositioned to left side; call light within reach; will continue to monitor
--- NOTE | 2017-10-02 07:58 | NUR ---
awake in bed; continues to rest on left side; denies pain; iv patent; o2 per nc; urinal at bedside; alicia charged; call light within reach; will continue to monitor
--- NOTE | 2017-10-02 08:15 | NUR ---
Dr Doyle at bedside to assess pt and discuss plan of care; abd dressing removed per MD; incision with piyush intact; well approx with no drainage noted; incision to be left OLENA per MD; alicia stripped and emptied; clear liquids provided; call light within reach; will continue to monitor
--- NOTE | 2017-10-02 09:16 | NUR ---
manual bp 180/100; medicated with iv labetalol as per orders; #20 removed from lfa with catheter tip intact; temp noted 95.0; mike hugger to be applied; tolerating po fluids well; no n/v noted; pt admits to abd bloating; afib on monitor; o2 say 95 % with portable pulse ox monitor; call light within reach; will continue to monitor
--- NOTE | 2017-10-02 09:57 | NUR ---
awake; up to bsc with weak assisted gait; noted passing flatus; no distress noted; pt admits to some abd bloating after consuming liquid breakfast; denies need for pain meds at current; iv patent; no redness or edema noted at site; afib/ pvc 70 on monitor; call light within reach; will continue to monitor
--- NOTE | 2017-10-02 11:00 | NUR ---
remains up to bsc; liquid/water brown stool noted; assisted with bath; pericare per automotive service writer; pt refusing to ambulate in fink at this time; admits to abd tenderness; up to recliner; scd intact; afib on monitor; copious draining noted from AKILA insertion site; draing sponge applied with saturation noted within 5 minutes; mike hugger placed; call light within reach; will continue to monitor
--- NOTE | 2017-10-02 11:15 | NUR ---
ACCUCHECK 56; JUICE PROVIDED;
--- NOTE | 2017-10-02 11:58 | NUR ---
awake; remains up to recliner; no distress noted; admits to pain relief; iv patent; no redness or edema noted at site; mike hugger blanket intact; afib/pvc on monitor; tolerating clear liquids; scd's intact; o2 per nc; call light within reach; will continue to monitor
--- NOTE | 2017-10-02 12:05 | NUR ---
Dr Sofia at bedside to discuss plan of care
--- NOTE | 2017-10-02 13:49 | NUR ---
AKILA dressing changed at this time; refused ambulation; pt assist back to bed as per request; iv patent; scd's intact; o2 per nc; call light within reach; will continue to monitor
--- NOTE | 2017-10-02 14:10 | NUR ---
resting with eyes closed; no distress noted; afib on monitor; will continue to monitor
--- NOTE | 2017-10-02 14:58 | NUR ---
Dr Sofia on unit; chief writer spoke with MD in regards to persistent BP: orders received to hold IVF
--- NOTE | 2017-10-02 16:18 | NUR ---
awake in bed; alicia stripped and emptied; iv patent; no redness or edema noted at site; temp 96.4; mike hugger continues; pt noted with o2 off; o2 sat on ra 91% with immed increase to 95 on 2L; accucheck 78; repositions self; call light within reach; will continue to monitor
--- NOTE | 2017-10-02 18:08 | NUR ---
resting in bed with eyes closed; no distress noted; resp even and unlabored; iv patent; fluids infusing without complication; no redness or edema noted at site; afib/pvc on monitor; o2 per nc; IS at bedside; pt able to pull 1250ml max; hourly use x10 reps enouraged; poor effort noted; bed in lowest position; side rails elevated; call light within reach
--- NOTE | 2017-10-02 19:00 | NUR ---
PT SITTING UP IN BED WATCHING TV. PT IS ALERT AND ORIENTED X3. SHIFT ASSESSMENT COMPLETED AT THIS TIME. IV PATENT X1. PLAN OF CARE REVIEWED WITH PT. AKILA DRAIN EMPTIED 70CC SEROUS DRAINAGE. CALL LIGHT IN REACH. WILL CONTINUE TO MONITOR
--- NOTE | 2017-10-02 21:30 | NUR ---
PT MEDICATED WITH PM MEDS PER APR. CALL LIGHT IN REACH. WILL CONTINUE TO MONITOR
--- NOTE | 2017-10-02 23:36 | NUR ---
PT RESTING IN BED WITH EYES CLOSED. RESP ARE EVEN AND UNLABOREDS. NO DISTRESS NOTED. CALL LIGHT IN REACH. WILL CONTINUE TO MONITOR
[2017-10-03] VITALS (12 sets, daily range): BP systolic 115–146; BP diastolic 52–93
--- NOTE | 2017-10-03 02:00 | NUR ---
PT RESTING IN BED WITH EYES CLOSED. RESP ARE EVEN AND UNLABORED. REMAINS AFIB ON MONITOR IN THE 80S. CALL LIGHT IN REACH. WILL CONITNUE TO MONITOR
--- NOTE | 2017-10-03 02:39 | NUR ---
AKILA DRAIN LEAKING AROUND SITE. CHANGED DRESSING AT SITE. GOWN AND BED SATURATED. PT AGREED TO CHANGE GOWN AND TOP SHEET HOWEVER REFUSED TO CHANGE BOTTOM SHEET AT THIS TIME. WILL CONTINUE TO MONITOR
--- NOTE | 2017-10-03 04:00 | NUR ---
LAB INTO DRAW AM LABS. PT TOLERATED WELL. WILL CONTINUE TO MONITOR
[2017-10-03 05:03] LABS: HEMATOCRIT 35.3 % (39.0-50.0); HEMOGLOBIN 11.4 g/dl (14.0-18.0); MEAN CELL VOLUME 91.7 fL CALC (80.0-100.0); MEAN CORPUSCULAR HGB 29.6 pG CALC (26.0-32.0); MEAN CORPUSCULAR HGB CONC 32.3 g/L CALC (32.0-36.0); RED BLOOD COUNT 3.85 mill/uL (4.70-6.10); RED CELL DISTRI WIDTH 15.4 % (11.5-15.5)
[2017-10-03 05:15] LABS: ALBUMIN 2.2 g/dL (3.2-5.0); ALKALINE PHOSPHATASE 178 u/l (38-126); ANION GAP 11 (6-22 (CALC)); BILIRUBIN, TOTAL 0.9 mg/dL (0.0-1.4); BUN 17 mg/dL (9-20); BUN/CREATININE RATIO 16 (12-20 (CALC)); CARBON DIOXIDE 26 mmol/l (22-30); CHLORIDE 109 mmol/l (95-108); CREATININE 1.1 mg/dL (0.7-1.3); GFR > 60 ML/MIN (>=60 (CALC)); GFR FOR AFR.AMER. > 60 ML/MIN (>=60 (CALC)); POTASSIUM 3.7 mmol/l (3.5-5.1); SGOT/AST 40 u/l (17-59); SGPT/ALT 25 u/l (21-72); SODIUM 142 mmol/l (137-146); TOTAL PROTEIN 6.9 g/dL (6.3-8.2)
--- NOTE | 2017-10-03 06:02 | NUR ---
PT RESTING IN BED WATCHING TV. RESP ARE EVEN AND UNLABORED. NO DISTRESS NOTED. CALL LIGHT IN REACH. WILL CONTINUE TO MONIOTR
--- NOTE | 2017-10-03 06:49 | NUR ---
NURSE YANI NOTIFIED OF ACCU CHECK (76)
--- NOTE | 2017-10-03 07:18 | NUR ---
pt resting in bed with eyes closed; easily aroused; no distress noted; assessment completed at this time; pt alert and oriented x3; admits to abd pain rating 8/10; no facial grimaces of pain noted; requesting pain medication after breakfast; no n/v noted; resp even and unlabored; lungs clear; ra; skin color wnl; senior ios developer cough noted; IS at bedside; pt able to pull 1000ml x10 reps, poor effort noted; deep berathing, coughing and turning strongly encouraged; hr irreg; doppler pedal pulses; generalized edema, scrotum edema worse this am; abd firm/tight with bs hypoactive; no bm noted per customs entry writer; pt admits to passing flatus; voiding clear yellow urine without complication; urinal at bedside; #20 in rfa patent with ivf infusing without complication; no redness or edema noted at site; abd incision noted with piyush intact; incision well approx with no s/s of infection; alicia noted to right abd with serous drainage to bulb; copious serous drainage noted seeping from insertion site; scd's intact; am meds/plan of care explained; call light within reach; will continue to monitor
--- NOTE | 2017-10-03 08:15 | NUR ---
awake in bed; offers no complaints at this time; iv patent; o2 sat 98% with portable o2 monitor; ra; deny needs; afib/pvc on monitor; call light within reach; will continue to monitor
--- NOTE | 2017-10-03 08:50 | NUR ---
pt asleep; complaints of abd pain upon awakening; am meds explained and administered; mike archuleta placed on hold for a temp of 98+
--- NOTE | 2017-10-03 10:03 | NUR ---
resting in bed with eyes closed; no distress noted; resp even and unlabored; afib/pvc on monitor; iv patent; no redness or edema noted at site; call light within reach; will continue to monitor
--- NOTE | 2017-10-03 12:23 | NUR ---
pt awake in bed; no distress noted; pt offers no complaints; iv patent; no redness or edema noted at site; alicia milked and enptied for 70cc serous drainage; alicia dressing change at this time due to saturation; serous fluid noted seeping from insertion site mostly with coughing and movement; alicia noted intact with a suture; suction applied/maintained; am care offered several times with refusal; ambulation encouraged; pt states "what's the perez, I'm under so much stress right now"; ra; afib/pvc on monitor; call light within reach; will continue to monitor
--- NOTE | 2017-10-03 12:53 | NUR ---
Dr Doyle updated per justowriter operator on pt condition/status; informed MD of sign. decrease in AKILA output with bulb holding suction; informed MD of large amount of serous drainage leaking from insertion site and in between piyush at mid abd; orders received to maintain AKILA as is and advance to soft diet; will continue to monitor;
--- NOTE | 2017-10-03 13:30 | NUR ---
[id number] am care/bath; complete linen change; pt offers no complaints; pt able to ambulate within halls of unit with stand by assist; walker provided; up to recliner at this time; iv patent; ra; weight ontained via standing scale at 187.1 lbs; will continue to monitor
--- NOTE | 2017-10-03 14:07 | NUR ---
up to recliner; banana provided as per request; pt denies pain/needs; will continue to monitor
--- NOTE | 2017-10-03 15:08 | NUR ---
remains up to recliner; alicia site dressing noted saturated with serous drainage; dressing changed; alicia milked and emptied for 40cc; will continue to monitor
--- NOTE | 2017-10-03 16:05 | NUR ---
awake in recliner; requesting candy bar; iv patent; fluids infusing without complication; no redness or edema noted at site; afib on monitor; call light within reach; will continue to monitor
--- NOTE | 2017-10-03 16:20 | NUR ---
Dr Sofia at bedside
--- NOTE | 2017-10-03 18:12 | NUR ---
awake in recliner; assisted back to bed; no distress noted; pt offers no complaints at this time; iv patent; abt's infusing without complication; no redness or edema noted at site; afib on monitor; alicia stripped and drained; scd's intact; bed in lowest position; side rails elevated; call light within reach
--- NOTE | 2017-10-03 18:34 | NUR ---
dressing changed to site
--- NOTE | 2017-10-03 19:00 | NUR ---
PT RESTING IN BED WITH EYES CLOSED. PT AROUSES TO VERBAL STIMULI. PT IS ALERT AND ORIENTED X3. SHIFT ASSESSMENT COMPLETED AT THIS TIME. IV PATNET X1. INCISION WELL APROXIMATED AND GUEST RELATIONS ASSOCIATE. CLEAR YELLOW DRAINAGE NOTED AT INCISION. CALL LIGHT IN REACH. WILL CONTINUE TO MONITOR
--- NOTE | 2017-10-03 21:23 | NUR ---
PT ON PHONE IN ROOM. PT MEDICATED WITH PM MEDS PER APR. CALL LIGHT IN REACH. WILL CONTINUE TO MONITOR
--- NOTE | 2017-10-03 23:30 | NUR ---
PT SITTING UP IN BED WATCHING TV. AKILA EMPTIED. TOWEL CHANGED FOR DRAINAGE AT INCISION SITE. MEDICATED PER APR. TURKEY SANDIWCH AND JUICE PROVIDED FOR SNACK. CALL LIGHT IN REACH. WILL CONTINUE TO MONITOR
[2017-10-04] VITALS (7 sets, daily range): BP systolic 107–140; BP diastolic 46–76
--- NOTE | 2017-10-04 02:00 | NUR ---
PT RESTING IN BED WITH EYES CLOSED. RESP ARE EVEN AND UNLABORED. NO DSITRESS NOTED. CALL LIGHT IN REACH. WILL CONTINUE TO MONITOR
--- NOTE | 2017-10-04 04:00 | NUR ---
PT RESTING IN BED WITH EYES CLOSED. RESP ARE EVEN AND UNLABORED. NO DISTRESS NOTED. CALL LIGHT IN REACH. WILL CONTINUE TO MONITOR
--- NOTE | 2017-10-04 05:45 | NUR ---
PT RESTING IN BED WITH EYES CLOSED. RESP ARE EVEN AND UNLABORED. NO DISTRESS NOTED. CALL LIGHT IN REACH. WILL CONTINUE TO MONITOR
--- NOTE | 2017-10-04 06:05 | NUR ---
DR SMITH INTO SEE PT. PULLED AKILA DRAIN. WILL CONTINUE TO MONITOR
--- NOTE | 2017-10-04 07:05 | NUR ---
PT LAYING IN BED WATCHING TV, PT VERBALIZES HE IS HAVING MINIMAL ABD DISCOMFORT THIS MORNING, PT A & O X3, PERRL, HR 90, RESP. 18, BP 117/61, O2 97% ON RA, LUNG SOUNDS CLEAR IN UPPER LOBES & DIMINISHED IN THE BASES, INCISION SITE IS OPEN TO AIR, NO DRAINAGE NOTED AT THIS TIME, PT HAS 1+ EDEMA TO LE, 20G RFA IV WITH IV FLUIDS INFUSING AT PRESCRIBED RATE, PT ENCOURAGED TO USE INCENTIVE SPIROMETER, PT VERBALIZED UNDERSTANDING, AM ASSESSMENT COMPLETE, SEE INTERVENTIONS, SAFETY MEASURES REINFORCED, CALL SILVESTRE WITHIN REACH
--- NOTE | 2017-10-04 07:30 | NUR ---
SETUP ASSISTANCE PROVIDED WITH NILESH ROMERO
--- NOTE | 2017-10-04 08:45 | NUR ---
PT SITTING UP IN THE BED TALKING ON HIS CELL PHONE, NO S/S OF DISTRESS, CALL SILVESTRE WITHIN REACH
--- NOTE | 2017-10-04 09:25 | NUR ---
DR LAU AT BEDSIDE DISCUSSING PLAN OF CARE
--- NOTE | 2017-10-04 10:35 | NUR ---
PT RESTING IN BED WITH EYES CLOSED, AROUSES EASILY TO VERBAL STIMULI, NO S/S OF DISTRESS, CALL SILVESTRE WITHIN REACH
--- NOTE | 2017-10-04 11:35 | NUR ---
SETUP ASSISTANCE PROVIDED WITH LUNCH TRAY
[2017-10-04] MEDS ORDERED: AUGMENTIN875TAB PO (11:57)
[2017-10-04] MEDS ORDERED: PROTONIX40 MG PO (11:57)
[2017-10-04] MEDS ORDERED: LORTAB 5/3255 MG PO (11:59)
--- NOTE | 2017-10-04 13:40 | NUR ---
Discharge instructions given. Patient verbalizes understanding of same. Discharged in stable condition via Wheelchair to Home with family. All belongings sent with pt.
--- NOTE | 2017-10-06 12:03 | NUR ---
CALLED IN BIAXIN 500MG Q12H X14 DAYS PER DR YAÑEZ, CALLED TO TRAY ABBOTT AT 1200
== END 2017-10-04 13:30 | disposition home or self-care (01) | DRG 326 ==
LOC: ED 13:45 → ED-I 15:18 → ED 15:33 → ICU 15:34 → ED-I 15:34 → MS2 18:30 → ICU 18:45
PROVIDERS: Family Medicine; General Practice; Surgery; ADMIT Internal Medicine; ATTEND Internal Medicine
PROC: 0DU607Z Supplement Stomach with Autologous Tissue Substitute, Open Approach (ICD-10-PCS; principal; 2017-09-28)
DX: K25.5 Chronic or unspecified gastric ulcer with perforation (principal); I50.21 Acute systolic (congestive) heart failure; I48.92 Unspecified atrial flutter; N17.9 Acute kidney failure, unspecified; I42.8 Other cardiomyopathies; B37.89 Other sites of candidiasis; I11.0 Hypertensive heart disease with heart failure; I16.0 Hypertensive urgency; E11.9 Type 2 diabetes mellitus without complications; F14.10 Cocaine abuse, uncomplicated; K70.30 Alcoholic cirrhosis of liver without ascites; B19.20 Unspecified viral hepatitis C without hepatic coma; F17.210 Nicotine dependence, cigarettes, uncomplicated; Z91.14 Patient's other noncompliance with medication regimen
CPT/HCPCS: J0282; J1160; J1650; J2060; J2710; S0164

== ENCOUNTER 2018-07-01 16:16 | Emergency (ER) | payer OTHER ==
[~2018-07-01] VITALS: Ht 193 cm; Wt 60.0 kg
[~2018-07-01 16:16] MED LIST changes: +ALDACTONE25 MG PO; +AUGMENTIN875TAB PO; +COREG6.25 MG PO; +FUROSEMIDE40 MG PO; +LASIX 20 MG TAB20 MG PO; +LISINOPRIL10 MG PO; +LORTAB 5/3255 MG PO; +PROTONIX40 MG PO; +XARELTO20 MG PO
[2018-07-01] MEDS ORDERED: ATORVASTATIN CA40 MG PO (16:55)
[2018-07-01] MEDS ORDERED: ASPIRIN EC LOW81 MG PO (16:55)
[2018-07-01] MEDS ORDERED: SYMBICORT1 AE1 IN (16:56)
[2018-07-01] MEDS ORDERED: FERR SULFATE325 MG PO (16:57)
[2018-07-01 17:14] LABS: HEMATOCRIT 46.2 % (39.0-50.0); HEMOGLOBIN 14.4 g/dl (14.0-18.0); IMMATURE GRANULOCYTES 0.2 % (0.0-5.0); MEAN CELL VOLUME 94.7 fL CALC (80.0-100.0); MEAN CORPUSCULAR HGB 29.5 pG CALC (26.0-32.0); MEAN CORPUSCULAR HGB CONC 31.2 g/L CALC (32.0-36.0); NEUT# 3.8 thou/uL (1.82-7.42); RED BLOOD COUNT 4.88 mill/uL (4.70-6.10); RED CELL DISTRI WIDTH 15.9 % (11.5-15.5)
[2018-07-01 17:46] LABS: GFR > 60 ML/MIN (>=60 (CALC)); GFR FOR AFR.AMER. > 60 ML/MIN (>=60 (CALC))
[2018-07-01 18:08] LABS: BUN 16 mg/dL (9-20); BUN/CREATININE RATIO 24 (12-20 (CALC)); CHLORIDE 97 mmol/l (95-108); CREATININE 0.7 mg/dL (0.7-1.3); GFR > 60 ML/MIN (>=60 (CALC)); GFR FOR AFR.AMER. > 60 ML/MIN (>=60 (CALC)); SODIUM 141 mmol/l (137-146)
[2018-07-01 18:09] LABS: ANION GAP 15 (6-22 (CALC)); CARBON DIOXIDE 35 mmol/l (22-30); POTASSIUM 5.5 mmol/l (3.5-5.1)
[2018-07-01 19:20] VITALS: BP 195/80
== END 2018-07-01 19:30 | disposition short-term general hospital (02) | DRG 311 ==
LOC: ED 16:16
PROVIDERS: Family Medicine
DX: I20.0 Unstable angina (principal); E11.9 Type 2 diabetes mellitus without complications; I11.0 Hypertensive heart disease with heart failure; I50.9 Heart failure, unspecified; F17.200 Nicotine dependence, unspecified, uncomplicated; F12.90 Cannabis use, unspecified, uncomplicated
CPT/HCPCS: Q9967

== ENCOUNTER 2018-08-13 00:37 | Observation (INO) | payer OTHER ==
[~2018-08-13] VITALS: Ht 193 cm; Wt 59.8 kg
[~2018-08-13 00:37] MED LIST changes: +ASPIRIN EC LOW81 MG PO; +ATORVASTATIN CA40 MG PO; +FERR SULFATE325 MG PO; +SYMBICORT1 AE1 IN
[2018-08-13 01:13] LABS: IMMATURE GRANULOCYTES 0.3 % (0.0-5.0); MEAN CORPUSCULAR HGB 31.5 pG CALC (26.0-32.0); MEAN CORPUSCULAR HGB CONC 30.7 g/L CALC (32.0-36.0); NEUT# 4.61 thou/uL (1.82-7.42); RED BLOOD COUNT 2.98 mill/uL (4.70-6.10); RED CELL DISTRI WIDTH 15.9 % (11.5-15.5)
[2018-08-13 01:32] LABS: ACT PARTIAL THROMBO TIME 32.3 SECONDS (20.0-32.5); INTERNATIONAL NORMALIZED RATIO 1.1 RATIO (0.7-1.3); PROTHROMBIN TIME 11.5 SECONDS (9.0-12.5)
[2018-08-13 01:33] LABS: ALBUMIN 3.7 g/dL (3.2-5.0); ALKALINE PHOSPHATASE 677 u/l (38-126); AMYLASE 125 u/l (30-110); ANION GAP 13 (6-22 (CALC)); BILIRUBIN, TOTAL 0.9 mg/dL (0.0-1.4); BUN 22 mg/dL (9-20); BUN/CREATININE RATIO 27 (12-20 (CALC)); CARBON DIOXIDE 31 mmol/l (22-30); CHLORIDE 100 mmol/l (95-108); CREATININE 0.8 mg/dL (0.7-1.3); GFR > 60 ML/MIN (>=60 (CALC)); GFR FOR AFR.AMER. > 60 ML/MIN (>=60 (CALC)); LIPASE 102 u/l (23-300); POTASSIUM 4.6 mmol/l (3.5-5.1); SGOT/AST 163 u/l (17-59); SODIUM 140 mmol/l (137-146)
[2018-08-13 01:44] LABS: MYOGLOBIN 146 ng/mL (0 - 121)
[2018-08-13 01:51] LABS: URINE BILIRUBIN - DIPSTICK NEGATIVE (NEGATIVE); URINE BLOOD DIPSTICK NEGATIVE (NEGATIVE); URINE COLOR YELLOW; URINE GLUCOSE - DIPSTICK NEGATIVE (NEGATIVE); URINE KETONE TRACE mg/dL (NEGATIVE); URINE LEUK ESTERASE NEGATIVE (NEGATIVE); URINE NITRITE - DIPSTICK NEGATIVE (Negative); URINE PH 6.5 (4.5-8.0); URINE PROTEIN - DIPSTICK NEGATIVE (NEG-TRACE)
[2018-08-13 01:51] LABS: HEMATOCRIT 30.6 % (39.0-50.0); HEMOGLOBIN 9.4 g/dl (14.0-18.0); MEAN CELL VOLUME 102.7 fL CALC (80.0-100.0)
[2018-08-13 01:55] LABS: COCAINE NEGATIVE (NEGATIVE)
[2018-08-13 01:56] LABS: BARBITURATES NEGATIVE (NEGATIVE); METHADONE NEGATIVE (NEGATIVE); OXCYCODONE NEGATIVE (NEGATIVE); TETRAHYDROCANNABIONOL NEGATIVE (NEGATIVE); TRICYLIC ANTIDEPRESSANTS NEGATIVE (NEGATIVE)
[2018-08-13 04:34] VITALS: BP 98/66
[2018-08-13 07:12] VITALS: BP 112/60
[2018-08-13 10:55] VITALS: BP 118/62
[2018-08-13] MEDS ORDERED: ASPIRIN CHEWABL81 MG PO (11:15)
== END 2018-08-13 13:00 | DRG 313 ==
LOC: ED 00:37 → ED-I 02:50 → ED 03:58 → MS2 03:59
PROVIDERS: Emergency Medicine; ADMIT Internal Medicine; ATTEND Internal Medicine
DX: R07.9 Chest pain, unspecified (principal); I11.0 Hypertensive heart disease with heart failure; I50.9 Heart failure, unspecified; E11.9 Type 2 diabetes mellitus without complications; E78.5 Hyperlipidemia, unspecified; B18.2 Chronic viral hepatitis C; Z86.718 Personal history of other venous thrombosis and embolism; Z79.01 Long term (current) use of anticoagulants
CPT/HCPCS: G0378

== ENCOUNTER 2020-07-10 08:27 | Emergency (ER) | payer OTHER ==
[~2020-07-10] VITALS: Ht 193 cm; Wt 80.0 kg
[~2020-07-10 08:27] MED LIST changes: +ASPIRIN CHEWABL81 MG PO
[2020-07-10 09:30] LABS: HEMOGLOBIN 12.3 g/dl (14.0-18.0); IMMATURE GRANULOCYTES 0.6 % (0.0-5.0); MEAN CELL VOLUME 97.6 fL CALC (80.0-100.0); MEAN CORPUSCULAR HGB 29.5 pG CALC (26.0-32.0); MEAN CORPUSCULAR HGB CONC 30.2 g/dL CAL (32.0-36.0); NEUT# 6.19 thou/uL (1.82-7.42); RED BLOOD COUNT 4.17 mill/uL (4.70-6.10); RED CELL DISTRI WIDTH 13.1 % (11.5-15.5)
[2020-07-10 09:34] LABS: HEMATOCRIT 40.7 % (39.0-50.0)
[2020-07-10] MEDS ORDERED: ASPIRIN81 MG PO (09:34)
[2020-07-10] MEDS ORDERED: QUESTRAN4 G1 PO (09:34)
[2020-07-10] MEDS ORDERED: CARVEDILOL6.25 MG PO (09:34)
[2020-07-10] MEDS ORDERED: LASIX 20 MG TAB20 MG PO (09:35)
[2020-07-10] MEDS ORDERED: DULERA1 AE1 IN (09:35)
[2020-07-10] MEDS ORDERED: PROTONIX40 M2 PO ×2 (09:36→09:41)
[2020-07-10] MEDS ORDERED: LISINOPRIL20 MG PO (09:36)
[2020-07-10] MEDS ORDERED: PAXIL30 MG PO (09:42)
[2020-07-10] MEDS ORDERED: ALDACTONE25 MG PO (09:42)
[2020-07-10] MEDS ORDERED: URSODIOL250 MG PO (09:43)
[2020-07-10 09:52] LABS: ALBUMIN 3.6 g/dL (3.2-5.0); ALKALINE PHOSPHATASE 180 u/l (38-126); ANION GAP 11 (6-22 (CALC)); BUN 8 mg/dL (9-20); BUN/CREATININE RATIO 11 (12-20 (CALC)); CARBON DIOXIDE 29 mmol/l (22-30); CHLORIDE 104 mmol/l (95-108); CREATININE 0.8 mg/dL (0.7-1.3); GFR > 60 ML/MIN (>=60 (CALC)); GFR FOR AFR.AMER. > 60 ML/MIN (>=60 (CALC)); POTASSIUM 4.3 mmol/l (3.5-5.1); SGOT/AST 75 u/l (17-59); SODIUM 140 mmol/l (137-146); TOTAL PROTEIN 8.2 g/dL (6.3-8.2)
[2020-07-10 10:03] LABS: BILIRUBIN, TOTAL 0.8 mg/dL (0.0-1.4)
[2020-07-10] MEDS ORDERED: DOXYCYCL HYC100 M4 PO (10:13)
[2020-07-10] MEDS ORDERED: AMOX/K CLAV875 M1 PO (10:13)
[2020-07-10 10:50] VITALS: BP 196/77
== END 2020-07-10 10:54 | disposition left against medical advice (07) | DRG 195 ==
LOC: ED 08:27
PROVIDERS: Family Medicine
DX: J18.9 Pneumonia, unspecified organism (principal); I11.0 Hypertensive heart disease with heart failure; I50.9 Heart failure, unspecified; I48.91 Unspecified atrial fibrillation; Z91.19 Patient's noncompliance with other medical treatment and regimen; Z86.718 Personal history of other venous thrombosis and embolism; Z20.822 Contact with and (suspected) exposure to COVID-19

== ENCOUNTER 2020-11-05 09:01 | Observation (INO) | payer SELFPAY ==
[~2020-11-05] VITALS: Ht 193 cm; Wt 100.0 kg
[~2020-11-05 09:01] MED LIST changes: +AMOX/K CLAV875 M1 PO; +ASPIRIN81 MG PO; +CARVEDILOL6.25 MG PO; +DOXYCYCL HYC100 M4 PO; +DULERA1 AE1 IN; +LISINOPRIL20 MG PO; +PAXIL30 MG PO; +PROTONIX40 M2 PO; +QUESTRAN4 G1 PO; +URSODIOL250 MG PO
--- NOTE | 2020-11-05 09:29 | NUR ---
PATIENT TO ROOM VIA WHEELCHAIR.
--- NOTE | 2020-11-05 10:40 | NUR ---
20G IV PLACED BY DR MANRIQUEZ WITH ULTRASOUND RAC
[2020-11-05 11:15] LABS: HEMATOCRIT 37.5 % (39.0-50.0); HEMOGLOBIN 11.5 g/dl (14.0-18.0); MEAN CELL VOLUME 100.8 fL CALC (80.0-100.0); MEAN CORPUSCULAR HGB 30.9 pG CALC (26.0-32.0); MEAN CORPUSCULAR HGB CONC 30.7 g/dL CAL (32.0-36.0); RED BLOOD COUNT 3.72 mill/uL (4.70-6.10)
[2020-11-05 11:16] LABS: NEUT# 4.75 thou/uL (1.82-7.42)
[2020-11-05 11:19] LABS: ALBUMIN 3.4 g/dL (3.2-5.0); ALKALINE PHOSPHATASE 208 u/l (38-126); ANION GAP 8 (6-22 (CALC)); BILIRUBIN, TOTAL 0.7 mg/dL (0.0-1.4); BUN 14 mg/dL (9-20); BUN/CREATININE RATIO 12 (12-20 (CALC)); CARBON DIOXIDE 35 mmol/l (22-30); CHLORIDE 100 mmol/l (95-108); CREATININE 1.2 mg/dL (0.7-1.3); GFR > 60 ML/MIN (>=60 (CALC)); GFR FOR AFR.AMER. > 60 ML/MIN (>=60 (CALC)); POTASSIUM 4.4 mmol/l (3.5-5.1); SGOT/AST 108 u/l (17-59); SODIUM 138 mmol/l (137-146); TOTAL PROTEIN 7.7 g/dL (6.3-8.2)
[2020-11-05 11:28] LABS: MYOGLOBIN 98 ng/mL (0 - 121)
--- NOTE | 2020-11-05 13:48 | NUR ---
Reassessment of patient completed. No distress noted.
--- NOTE | 2020-11-05 19:20 | NUR ---
IN ROOM INTRODUCED SELF TO PT. NO C/O CP OR SOB OFFERED AT THIS TIME.
--- NOTE | 2020-11-05 20:38 | NUR ---
PT. MADE AWARE THAT THEIR ARE NO BEDS UPSTAIRS AND HE WILL BE STAYING IN THE ER THIS EVENING, VERBALIZED UNDERSTANDING.
--- NOTE | 2020-11-05 20:41 | NUR ---
PT. VOIDED APPROX. 800 ML CLEAR YELLOW URINE.
--- NOTE | 2020-11-05 21:14 | NUR ---
PT. PLACED IN HOSPITAL BED FOR COMFORT.
--- NOTE | 2020-11-05 22:15 | NUR ---
PT. VOIDED APPROX. 100 ML CLEAR YELLOW URINE.
--- NOTE | 2020-11-05 22:55 | NUR ---
PT. VOIDED ANOTHER 100 ML CLEAR YELLOW URINE, MO C/O CP OR SOB OFFERED, V/S STABLE.
--- NOTE | 2020-11-06 00:59 | NUR ---
EMPTIED URINAL FOR 1000 CC
--- NOTE | 2020-11-06 02:59 | NUR ---
VOIDED 875 CC OF CLEAR YELLOW URINE. GIVEN CUP OF COFFEE. VSS. DECREASE SWELLING IN LEGS PER PT. FEED ALL SCALEY AROUND TOES AND BOTTOM OF FEET.
--- NOTE | 2020-11-06 03:15 | NUR ---
PT HAD A 30 SEC RUN OF V-TACH. RESOLVED WITHOUT TREATMENT. PT RESTING. NO C/O. RETURNED TO S.R.
--- NOTE | 2020-11-06 04:30 | NUR ---
PT VOIDED 240 CC OF URINE.
[2020-11-06 05:37] LABS: ANION GAP 9 (6-22 (CALC)); BUN 16 mg/dL (9-20); BUN/CREATININE RATIO 15 (12-20 (CALC)); CARBON DIOXIDE 38 mmol/l (22-30); CHLORIDE 90 mmol/l (95-108); CREATININE 1.1 mg/dL (0.7-1.3); GFR > 60 ML/MIN (>=60 (CALC)); GFR FOR AFR.AMER. > 60 ML/MIN (>=60 (CALC)); POTASSIUM 3.7 mmol/l (3.5-5.1); SODIUM 133 mmol/l (137-146)
[2020-11-06 05:38] LABS: MAGNESIUM 1.3 mg/dL (1.6-2.3)
--- NOTE | 2020-11-06 06:00 | NUR ---
PT GIVEN WATER 240 CC . NO C/O. VSS
--- NOTE | 2020-11-06 07:00 | NUR ---
SINCE LASIX GIVEN U/O 3000 CC PT HAS 2 SMALL WATER BOTTLES/1 CUP OF COFFEE.
--- NOTE | 2020-11-06 07:20 | NUR ---
PATIENT REPORT TO NÉSTOR VALENTINO.
[2020-11-06 07:45] VITALS: BP 130/64
--- NOTE | 2020-11-06 08:00 | NUR ---
SHIFT CHANGE REPORT, PT AWAKE ALERT AND ORIENTED RESTING IN BED, DENIES PAIN AT THIS TIME, HEART MONITOR IN PLACE, WILL CONTINUE TO MONITOR.
[2020-11-06 08:36] VITALS: BP 135/64
[2020-11-06] MEDS ORDERED: ULTRAM50 M1 PO (12:20)
--- NOTE | 2020-11-06 15:15 | NUR ---
PATIENT DISCHARGE INSTRUCTIONS DISCUSSED NÉSTOR VALENTINO. PATIENT AWAITING RIDE AT THIS TIME.
--- NOTE | 2020-11-06 18:00 | NUR ---
MEAL TRAY PROVIDED PATIENT WILL CALL RIDE AGAIN FOR DISCAHRGE.
--- NOTE | 2020-11-08 10:09 | NUR ---
{armando,pmoa [pst doscjarge fp;;pw i[ ca;; cp,[;eted tpdau. 11/08/20. Spoke to sister of patient. Sister states pt. is doing about the same since discharge. Still weak and fatigues easily. Pt. is taking medication provided at discharge without issue. Pt. has appt scheduled for Wednesday, 11/11. No questions or concerns voiced by sister at this time. Appreciative of call.
== END 2020-11-06 19:00 | disposition home or self-care (01) | DRG 293 ==
LOC: ED 09:01 → ED-I 17:00 → ED 17:24 → ED-I 17:25
PROVIDERS: Emergency Medicine; ADMIT Internal Medicine; ATTEND Internal Medicine
DX: I11.0 Hypertensive heart disease with heart failure (principal); I50.9 Heart failure, unspecified; E83.42 Hypomagnesemia; E11.9 Type 2 diabetes mellitus without complications; I25.10 Atherosclerotic heart disease of native coronary artery without angina pectoris; B19.20 Unspecified viral hepatitis C without hepatic coma; K21.9 Gastro-esophageal reflux disease without esophagitis; Z86.718 Personal history of other venous thrombosis and embolism; Z87.891 Personal history of nicotine dependence; Z20.822 Contact with and (suspected) exposure to COVID-19
CPT/HCPCS: J3475

== ENCOUNTER 2021-01-14 06:14 | Emergency (ER) | payer SELFPAY ==
[~2021-01-14] VITALS: Ht 193 cm; Wt 84.1 kg
[2021-01-14 08:07] LABS: HEMATOCRIT 33.8 % (39.0-50.0); HEMOGLOBIN 10.8 g/dl (14.0-18.0); IMMATURE GRANULOCYTES 0.1 % (0.0-5.0); MEAN CELL VOLUME 97.4 fL CALC (80.0-100.0); MEAN CORPUSCULAR HGB 31.1 pG CALC (26.0-32.0); NEUT# 4.03 thou/uL (1.82-7.42); RED BLOOD COUNT 3.47 mill/uL (4.70-6.10); RED CELL DISTRI WIDTH 16.4 % (11.5-15.5)
[2021-01-14 08:40] LABS: ALBUMIN 3.9 g/dL (3.2-5.0); BUN 11 mg/dL (9-20); BUN/CREATININE RATIO 11 (12-20 (CALC)); GFR > 60 ML/MIN (>=60 (CALC)); GFR FOR AFR.AMER. > 60 ML/MIN (>=60 (CALC)); SGOT/AST 142 u/l (17-59); SODIUM 135 mmol/l (137-146)
[2021-01-14 08:42] LABS: ACT PARTIAL THROMBO TIME 25.1 SECONDS (20.0-32.5); INTERNATIONAL NORMALIZED RATIO 1.1 RATIO (0.7-1.3); PROTHROMBIN TIME 11.4 SECONDS (9.0-12.5)
[2021-01-14 08:45] LABS: ANION GAP 13 (6-22 (CALC)); CARBON DIOXIDE 25 mmol/l (22-30); CHLORIDE 102 mmol/l (95-108); POTASSIUM 4.6 mmol/l (3.5-5.1)
[2021-01-14 08:46] LABS: ALKALINE PHOSPHATASE 534 u/l (38-126); TOTAL PROTEIN 9.3 g/dL (6.3-8.2)
[2021-01-14 10:15] VITALS: BP 148/70
== END 2021-01-14 10:13 | disposition short-term general hospital (02) | DRG 303 ==
LOC: ED 06:14
PROVIDERS: Family Medicine
DX: I25.110 Atherosclerotic heart disease of native coronary artery with unstable angina pectoris (principal); R45.851 Suicidal ideations; F14.10 Cocaine abuse, uncomplicated; I11.0 Hypertensive heart disease with heart failure; I50.9 Heart failure, unspecified; I48.91 Unspecified atrial fibrillation; F17.210 Nicotine dependence, cigarettes, uncomplicated; Z86.718 Personal history of other venous thrombosis and embolism; Z20.822 Contact with and (suspected) exposure to COVID-19
CPT/HCPCS: J1644

== ENCOUNTER 2021-04-02 09:41 | Observation (INO) | payer OTHER ==
[~2021-04-02] VITALS: Ht 193 cm; Wt 68.0 kg
--- NOTE | 2021-04-02 09:43 | NUR ---
PATIENT TO ROOM VIA WHEELCHAIR FOR BEDSIDE TRIAGE.
[2021-04-02] MEDS ORDERED: XARELTO10 MG PO (10:17)
[2021-04-02] MEDS ORDERED: ASPIRIN LOW DOS81 M1 PO (10:18)
[2021-04-02] MEDS ORDERED: FERROUS SULF325 M2 PO (10:18)
[2021-04-02] MEDS ORDERED: SYMBICORT1 AE1 IN (10:19)
[2021-04-02] MEDS ORDERED: CARVEDILOL6.25 MG PO (10:19)
[2021-04-02] MEDS ORDERED: LISINOPRIL10 MG PO (10:20)
[2021-04-02] MEDS ORDERED: FUROSEMIDE20 MG PO (10:21)
[2021-04-02] MEDS ORDERED: PROTONIX40 M2 PO (10:21)
[2021-04-02] MEDS ORDERED: SPIRONOLACTONE25 MG PO (10:23)
[2021-04-02] MEDS ORDERED: ATORVASTATIN CA40 MG PO (10:24)
[2021-04-02 11:08] LABS: HEMATOCRIT 35.7 % (39.0-50.0); HEMOGLOBIN 11.3 g/dl (14.0-18.0); IMMATURE GRANULOCYTES 0.1 % (0.0-5.0); MEAN CELL VOLUME 101.1 fL CALC (80.0-100.0); MEAN CORPUSCULAR HGB CONC 31.7 g/dL CAL (32.0-36.0); NEUT# 4.15 thou/uL (1.82-7.42); RED BLOOD COUNT 3.53 mill/uL (4.70-6.10); RED CELL DISTRI WIDTH 15.6 % (11.5-15.5)
[2021-04-02 11:25] LABS: ETHYL ALCOHOL 0 mg/dl (0-30)
[2021-04-02 11:26] LABS: ALKALINE PHOSPHATASE 646 u/l (38-126); ANION GAP 13 (6-22 (CALC)); BILIRUBIN, TOTAL 4.4 mg/dL (0.0-1.4); BUN 9 mg/dL (9-20); BUN/CREATININE RATIO 12 (12-20 (CALC)); CARBON DIOXIDE 25 mmol/l (22-30); CHLORIDE 103 mmol/l (95-108); CREATININE 0.7 mg/dL (0.7-1.3); GFR > 60 ML/MIN (>=60 (CALC)); GFR FOR AFR.AMER. > 60 ML/MIN (>=60 (CALC)); POTASSIUM 4.3 mmol/l (3.5-5.1); SODIUM 137 mmol/l (137-146); TOTAL PROTEIN 8.7 g/dL (6.3-8.2)
[2021-04-02 11:27] LABS: SGOT/AST 288 u/l (17-59)
--- NOTE | 2021-04-02 13:57 | NUR ---
EBENEZER SLUBBER RUNNER AT BEDSIDE.
--- NOTE | 2021-04-02 16:11 | NUR ---
ATTEMPT TO CALL REPORT. NO ANSWER
[2021-04-02 17:04] VITALS: BP 134/72
--- NOTE | 2021-04-02 17:11 | NUR ---
REPORT PROVIDED TO DANNA. PT ESCORTED VIA WHEELCHAIR TO ROOM 261
[2021-04-02 19:00] VITALS: BP 131/67
--- NOTE | 2021-04-02 19:00 | NUR ---
REPORT RECEIVED FROM Jignesh LANDRY RN. CARE OF PT ASSUMED AT THIS TIME.
[2021-04-03] VITALS: BP 122/79
[2021-04-03 04:00] VITALS: BP 109/54
[2021-04-03 06:40] LABS: MAGNESIUM 1.7 mg/dL (1.6-2.3)
[2021-04-03 06:41] LABS: HEMATOCRIT 30.9 % (39.0-50.0); HEMOGLOBIN 10.2 g/dl (14.0-18.0); MEAN CELL VOLUME 98.1 fL CALC (80.0-100.0); MEAN CORPUSCULAR HGB 32.4 pG CALC (26.0-32.0); RED BLOOD COUNT 3.15 mill/uL (4.70-6.10); RED CELL DISTRI WIDTH 15.7 % (11.5-15.5)
[2021-04-03 06:47] LABS: ALBUMIN 2.5 g/dL (3.2-5.0); ALKALINE PHOSPHATASE 525 u/l (38-126); ANION GAP 10 (6-22 (CALC)); BILIRUBIN, TOTAL 3.6 mg/dL (0.0-1.4); BUN 11 mg/dL (9-20); BUN/CREATININE RATIO 15 (12-20 (CALC)); CARBON DIOXIDE 28 mmol/l (22-30); CHLORIDE 102 mmol/l (95-108); CREATININE 0.7 mg/dL (0.7-1.3); GFR > 60 ML/MIN (>=60 (CALC)); GFR FOR AFR.AMER. > 60 ML/MIN (>=60 (CALC)); POTASSIUM 3.9 mmol/l (3.5-5.1); SGOT/AST 242 u/l (17-59); SODIUM 136 mmol/l (137-146); TOTAL PROTEIN 7.4 g/dL (6.3-8.2)
[2021-04-03 06:48] LABS: CHOLESTEROL HDL RATIO 12.9 (<4.4 (CALC))
[2021-04-03 07:00] VITALS: BP 116/63
--- NOTE | 2021-04-03 07:00 | NUR ---
PT SITTING IN BED. A&O X3. FLAT AFFECT NOTED. PT REPORTS WEAKNESS WHICH HAS BEEN INCREASING. PT CONSULT PLACED. CLEAR LUNG SOUNDS HEARD UPON AUSCULTATION. ACTIVE BOWEL SOUNDS X 4 QUADRANTS. #22G RH HEALTHY AND PATENT. MARKETING AUTOMATION MANAGER IN PLACE. ASSESSMENT COMPLETED. 700 CC OF URINE NOTED. PRODUCTIVE COUGH NOTED. CALL LIGHT WITHIN REACH.
[2021-04-03] MEDS ORDERED: ATORVASTATIN CA40 MG PO (09:44)
[2021-04-03] MEDS ORDERED: XARELTO10 MG PO (09:44)
[2021-04-03] MEDS ORDERED: CARVEDILOL6.25 MG PO (09:44)
[2021-04-03] MEDS ORDERED: FUROSEMIDE20 MG PO (09:45)
[2021-04-03] MEDS ORDERED: ASPIRIN LOW DOS81 M1 PO (09:45)
[2021-04-03] MEDS ORDERED: PROTONIX40 M2 PO (09:45)
[2021-04-03] MEDS ORDERED: LISINOPRIL20 M1 PO (09:45)
[2021-04-03] MEDS ORDERED: SYMBICORT1 AE1 IN (09:46)
--- NOTE | 2021-04-03 09:49 | NUR ---
DR BETANCOURT AND Fer BROWN APRN AT BEDSIDE DISCUSSING POC
[2021-04-03 11:37] VITALS: BP 101/54
[2021-04-03 16:33] VITALS: BP 96/53
--- NOTE | 2021-04-03 18:22 | NUR ---
PT SITTING IN BED. NO DISTRESS NOTED. NO NEEDS AT THIS TIME. CALL LIGHT WITHIN REACH.
[2021-04-03 19:00] VITALS: BP 93/52
--- NOTE | 2021-04-03 19:00 | NUR ---
RECIEVED REPORT FROM Abhishek MORALES RN
--- NOTE | 2021-04-03 19:30 | NUR ---
PT RESTING IN SEMI FOWLERS POSITION. PT IS A/OX3. ASSESSMENT COMPLETED. RESPIRATIONS ARE EVEN AND UNLABORED ON ROOM AIR. LUNG SOUNDS DIMINISHED IN LEFT LOBES. HEART RHYTHM NORMAL WITH TELE IN PLACE. BOWEL SOUNDS ACTIVE. #22G RH FLUSHED, SITE APPEARS HEALTHY AND PATENT. SKIN INTACT. PULSES STRONG. PT DENIES OF ANY PAINS OR DISCOMFORTS AT THIS TIME. 100 OF MICKEY COLOR URINE NOTED. ALL SAFTEY PRECAUTIONS ARE IN PLACE WITH CALL LIGHT IN REACH. WILL CONTINUE TO MONITOR
[2021-04-04] VITALS: BP 92/61
--- NOTE | 2021-04-04 00:10 | NUR ---
PT SLEEPING IN SEMI FOWLERS POSITION. RESPIRATIONS EVEN AND UNLABORED. TELE MONITORING IN PLACE, AFIB PER ER MONITORING. #22G RH IN PLACE. NO SIGNS OF ANY DISCOMFORTS. ALL SAFTEY PRECAUTIONS ARE IN PLACE WITH CALL LIGHT IN REACH. WILL CONTINUE TO MONITOR.
--- NOTE | 2021-04-04 03:57 | NUR ---
PT SLEEPING IN LOW FOWLERS POSITION. RESPIRATIONS EVEN AND UNLABORED. TELE MONITORING IN PLACE, AFIB PER ER MONITORING. #22G RH IN PLACE. NO SIGNS OF ANY DISCOMFORTS. ALL SAFTEY PRECAUTIONS ARE IN PLACE WITH CALL LIGHT IN REACH. WILL CONTINUE TO MONITOR.
[2021-04-04 04:00] VITALS: BP 125/57
[2021-04-04 05:27] LABS: HEMATOCRIT 33.7 % (39.0-50.0); HEMOGLOBIN 10.8 g/dl (14.0-18.0); MEAN CELL VOLUME 98.5 fL CALC (80.0-100.0); MEAN CORPUSCULAR HGB 31.6 pG CALC (26.0-32.0); RED BLOOD COUNT 3.42 mill/uL (4.70-6.10); RED CELL DISTRI WIDTH 15.9 % (11.5-15.5)
[2021-04-04 05:48] LABS: ANION GAP 10 (6-22 (CALC)); BUN 13 mg/dL (9-20); BUN/CREATININE RATIO 16 (12-20 (CALC)); CARBON DIOXIDE 26 mmol/l (22-30); CHLORIDE 102 mmol/l (95-108); CREATININE 0.8 mg/dL (0.7-1.3); GFR > 60 ML/MIN (>=60 (CALC)); GFR FOR AFR.AMER. > 60 ML/MIN (>=60 (CALC)); MAGNESIUM 1.6 mg/dL (1.6-2.3); POTASSIUM 3.9 mmol/l (3.5-5.1); SODIUM 134 mmol/l (137-146)
[2021-04-04 08:00] VITALS: BP 125/84
--- NOTE | 2021-04-04 08:00 | NUR ---
PT EATING BREAKFAST UPON ENTERING ROOM. ASSESSMENT AND VITALS ALLOWED AT THIS TIME. PT IS A&O X3 LUNG SOUNDS CLEAR UPPER/LOWER LOBES ANTERIOR AND POSTERIOR. HEART SOUNDS ARE IRREGULAR. TELE MONBITOR IN PLACE. CONTINOUS MONITRORING BY ED. BOWEL SOUNDS ACTIVE X4. STATES NO PAIN AT THIS TIME JUST COLD. IV LOCATED ON RW 22G SL, FLUSHED WITH NO RESISTANCE. FALL/SAFTEY PRECAUTIONS WITHIN REACH. CALL LIGHT WITHIN REACH.
[2021-04-04] MEDS ORDERED: ZPAK PO (09:24)
--- NOTE | 2021-04-04 09:52 | NUR ---
S- pt c/o being cold. 0- pt resting in bed semi recline. He performed bed mobility slow but without assist. Supine to and from sit with supervision no use of bed rails. Sit to and from stand with bed in lowest position with CGA x2. He ambulated with RW 2 x 25' with CGA only. Pt encouraged to stand tall and not to walk too close to walker. LE ex performed in sit and supine, written ex given to pt to perform in sit and supine, low reps, slowly with concentrating on tightening muscles. CM has ordered 4 WW for home. Pt reported walking approx 25' in home to BR but not much more. BP 109/53, hr 77 02 SAT 92 TO 95%. Time spent with pt 40 min. A- [facility] E[facility] or home with home health and RW. P- Will follow per POC.
[2021-04-04] MEDS ORDERED: ALDACTONE25 MG PO (11:10)
[2021-04-04] MEDS ORDERED: FERROUS SULF325 M2 PO (11:11)
--- NOTE | 2021-04-04 12:00 | NUR ---
PT EATING LUNCH. MEDICATION INFUSING VIA IV WITH NO COMPLICATIONS. TELE MONITOR IN PLACE. REPORTS NO PAIN. FALL/SAFETY PRECAUTIONS IN PLACE. CALL LIGHT IS WITHIN REACH
[2021-04-04 12:15] VITALS: BP 117/65
--- NOTE | 2021-04-04 13:45 | NUR ---
Discharge instructions given. Patient verbalizes understanding of same. Discharged in stable condition via Wheelchair to Home with [facility] staff. All belongings sent with pt. IV RW 22G REMOVED. CATHETER INTACT. TELE MONITOR REMOVED.
--- NOTE | 2021-04-05 10:46 | NUR ---
Review of final sputum culture from 04/03/2021 shows P aeruginosa with sensitivity to Cipro. Pt presented in ED with SOB and cough. Clinically impression was congestive heart failure. Patient was admitted and received Zithromax 500 mg IV Q24H and Rocephin 1 gm IV Q24H. Discharged home with prescription ZPak 250mg PO daily x5 days. Follow up with Dr. Comer at [facility] within [address] Jessica Betancur approves to start Levaquin 750 mg PO daily x7 days. Contacted pt and made aware to start Levaquin. Called new Rx to [facility] (Demetrius/pharmacist) and will be ready for pickup @ 1300. Contacted pt and informed of medication pickup time.
== END 2021-04-04 13:45 | disposition home or self-care (01) ==
LOC: ED 09:41 → ED-I 13:15 → ED 13:34 → MS2 13:35
PROVIDERS: Family Medicine; Nurse Practitioner; ADMIT Hospitalist; ATTEND Hospitalist
DX: I11.0 Hypertensive heart disease with heart failure (principal); I50.9 Heart failure, unspecified; J18.9 Pneumonia, unspecified organism; I42.8 Other cardiomyopathies; I48.91 Unspecified atrial fibrillation; E11.9 Type 2 diabetes mellitus without complications; I25.10 Atherosclerotic heart disease of native coronary artery without angina pectoris; R64 Cachexia; Z68.1 Body mass index [BMI] 19.9 or less, adult; B19.20 Unspecified viral hepatitis C without hepatic coma; K21.9 Gastro-esophageal reflux disease without esophagitis; T50.1X6A Underdosing of loop [high-ceiling] diuretics, initial encounter; T50.996A Underdosing of other drugs, medicaments and biological substances, initial encounter; Z91.128 Patient's intentional underdosing of medication regimen for other reason; Z86.718 Personal history of other venous thrombosis and embolism; Z87.891 Personal history of nicotine dependence; Z20.822 Contact with and (suspected) exposure to COVID-19
CPT/HCPCS: G0378; J1650; Q9967

== ENCOUNTER 2021-08-21 13:46 | Observation (INO) | payer OTHER ==
[2021-08-21] VITALS (10 sets, daily range): BP systolic 105–145; BP diastolic 47–83
[~2021-08-21] VITALS: Ht 193 cm; Wt 58.0 kg
[~2021-08-21 13:46] MED LIST changes: +ASPIRIN LOW DOS81 M1 PO; +FERROUS SULF325 M2 PO; +FUROSEMIDE20 MG PO; +LISINOPRIL20 M1 PO; +SPIRONOLACTONE25 MG PO; +XARELTO10 MG PO; +ZPAK PO
[2021-08-21 14:30] LABS: HEMATOCRIT 32.7 % (39.0-50.0); HEMOGLOBIN 10.5 g/dl (14.0-18.0); IMMATURE GRANULOCYTES 0.4 % (0.0-5.0); MEAN CELL VOLUME 103.5 fL CALC (80.0-100.0); MEAN CORPUSCULAR HGB 33.2 pG CALC (26.0-32.0); MEAN CORPUSCULAR HGB CONC 32.1 g/dL CAL (32.0-36.0); NEUT# 4.75 thou/uL (1.82-7.42); RED BLOOD COUNT 3.16 mill/uL (4.70-6.10); RED CELL DISTRI WIDTH 14.5 % (11.5-15.5)
[2021-08-21 14:49] LABS: ALBUMIN 3.3 g/dL (3.2-5.0); ALKALINE PHOSPHATASE 1267 u/l (38-126); ANION GAP 9 (6-22 (CALC)); BILIRUBIN, TOTAL 3.6 mg/dL (0.0-1.4); BUN 14 mg/dL (8-23); BUN/CREATININE RATIO 19 (12-20 (CALC)); CARBON DIOXIDE 28 mmol/l (22-30); CHLORIDE 103 mmol/l (95-108); CREATININE 0.7 mg/dL (0.7-1.3); GFR FOR AFR.AMER. > 60 ML/MIN (>=60 (CALC)); GFR OTHER RACES > 60 ML/MIN (>=60 (CALC)); SGOT/AST 226 u/l (19-48); SODIUM 136 mmol/l (137-146); TOTAL PROTEIN 9.2 g/dL (6.3-8.2)
[2021-08-22 03:50] VITALS: BP 120/57
[2021-08-22 06:28] LABS: HEMOGLOBIN 9.1 g/dl (14.0-18.0); MEAN CELL VOLUME 101.1 fL CALC (80.0-100.0); MEAN CORPUSCULAR HGB 32.9 pG CALC (26.0-32.0); MEAN CORPUSCULAR HGB CONC 32.5 g/dL CAL (32.0-36.0); RED BLOOD COUNT 2.77 mill/uL (4.70-6.10); RED CELL DISTRI WIDTH 14.5 % (11.5-15.5)
[2021-08-22 07:08] LABS: ALBUMIN 2.7 g/dL (3.2-5.0); ALKALINE PHOSPHATASE 1033 u/l (38-126); ANION GAP 8 (6-22 (CALC)); BILIRUBIN, TOTAL 2.9 mg/dL (0.0-1.4); BUN 12 mg/dL (8-23); BUN/CREATININE RATIO 17 (12-20 (CALC)); CALCULATED LDLCHOLESTEROL 217 mg/dL (62-129 (CALC)); CARBON DIOXIDE 28 mmol/l (22-30); CHLORIDE 102 mmol/l (95-108); CHOLESTEROL HDL RATIO 8.1 (<4.4 (CALC)); CREATININE 0.7 mg/dL (0.7-1.3); GFR FOR AFR.AMER. > 60 ML/MIN (>=60 (CALC)); GFR OTHER RACES > 60 ML/MIN (>=60 (CALC)); HDL CHOLESTEROL 34 mg/dL (>=40); MAGNESIUM 1.8 mg/dL (1.6-2.3); POTASSIUM 3.9 mmol/l (3.5-5.1); SGOT/AST 194 u/l (19-48); SODIUM 135 mmol/l (137-146); TOTAL CHOLESTEROL 271 mg/dl (0-199); TOTAL PROTEIN 7.5 g/dL (6.3-8.2); TOTAL TRIGLYCERIDES 98 mg/dl (30-149); VLDL CHOLESTROL 20 mg/dl (4-45 (CALC))
[2021-08-22 07:13] VITALS: BP 110/59
[2021-08-22 09:37] VITALS: BP 110/59
== END 2021-08-22 14:26 | disposition home or self-care (01) ==
LOC: ED 13:46 → MS2 17:31
PROVIDERS: Family Medicine; ADMIT Hospitalist; ATTEND Hospitalist
DX: R07.9 Chest pain, unspecified (principal); I11.0 Hypertensive heart disease with heart failure; I50.9 Heart failure, unspecified; I34.0 Nonrheumatic mitral (valve) insufficiency; I48.91 Unspecified atrial fibrillation; B19.20 Unspecified viral hepatitis C without hepatic coma; I25.10 Atherosclerotic heart disease of native coronary artery without angina pectoris; K21.9 Gastro-esophageal reflux disease without esophagitis; Z87.11 Personal history of peptic ulcer disease; Z87.891 Personal history of nicotine dependence; Z86.718 Personal history of other venous thrombosis and embolism
CPT/HCPCS: G0378; Q9967

== ENCOUNTER 2021-12-31 04:42 | Emergency (ER) | payer OTHER ==
[2021-12-31] VITALS (52 sets, daily range): BP systolic 98–159; BP diastolic 56–102
[~2021-12-31] VITALS: Ht 193 cm; Wt 50.5 kg
[2021-12-31 07:25] LABS: URINE BLOOD DIPSTICK NEGATIVE (NEGATIVE); URINE GLUCOSE - DIPSTICK NEGATIVE (NEGATIVE); URINE KETONE TRACE mg/dL (NEGATIVE); URINE LEUK ESTERASE NEGATIVE (NEGATIVE); URINE PH 5.5 (4.5-8.0); URINE PROTEIN - DIPSTICK TRACE mg/dL (NEG-TRACE); URINE SPECIFIC GRAVITY 1.025
[2021-12-31 07:28] LABS: ALBUMIN 3.4 g/dL (3.2-5.0); ALKALINE PHOSPHATASE 777 u/l (38-126); ANION GAP 14 (6-22 (CALC)); BILIRUBIN, TOTAL 6.9 mg/dL (0.0-1.4); BUN 23 mg/dL (8-23); BUN/CREATININE RATIO 34 (12-20 (CALC)); CARBON DIOXIDE 30 mmol/l (22-30); CHLORIDE 98 mmol/l (95-108); CREATININE 0.7 mg/dL (0.7-1.3); GFR FOR AFR.AMER. > 60 ML/MIN (>=60 (CALC)); GFR OTHER RACES > 60 ML/MIN (>=60 (CALC)); LIPASE 31 u/l (23-300); POTASSIUM 5.2 mmol/l (3.5-5.1); SGOT/AST 165 u/l (19-48); SODIUM 137 mmol/l (137-146); TOTAL PROTEIN 10.5 g/dL (6.3-8.2)
[2021-12-31 07:29] LABS: URINE BILIRUBIN - DIPSTICK LARGE (NEGATIVE)
[2021-12-31 07:30] LABS: URINE COLOR AMBER; URINE NITRITE - DIPSTICK NEGATIVE (Negative)
[2021-12-31 07:40] LABS: MYOGLOBIN 104 ng/mL (0 - 121)
[2021-12-31 08:22] LABS: HEMATOCRIT 29.4 % (39.0-50.0); HEMOGLOBIN 9.7 g/dl (14.0-18.0); IMMATURE GRANULOCYTES 0.9 % (0.0-5.0); NEUT# 6.56 thou/uL (1.82-7.42); RED BLOOD COUNT 3.03 mill/uL (4.70-6.10); RED CELL DISTRI WIDTH 15.6 % (11.5-15.5)
== END 2021-12-31 21:25 | disposition short-term general hospital (02) ==
LOC: ED 04:42 → ED-I 15:34 → ED 21:25
PROVIDERS: Family Medicine
DX: E80.6 Other disorders of bilirubin metabolism (principal); J18.9 Pneumonia, unspecified organism; R11.2 Nausea with vomiting, unspecified; R10.13 Epigastric pain; R10.12 Left upper quadrant pain; I11.0 Hypertensive heart disease with heart failure; I50.9 Heart failure, unspecified; I48.91 Unspecified atrial fibrillation; Z86.718 Personal history of other venous thrombosis and embolism; Z20.822 Contact with and (suspected) exposure to COVID-19
CPT/HCPCS: S0164

== ENCOUNTER 2022-02-24 10:01 | Observation (INO) | payer OTHER ==
[2022-02-24] VITALS (9 sets, daily range): BP systolic 108–151; BP diastolic 59–76
[~2022-02-24] VITALS: Ht 193 cm; Wt 49.2 kg
[2022-02-24 11:10] LABS: BASO% 0.4 % (0-3); EOS% 0.4 % (0-8); LYMPH% 30.1 % (15-41); MEAN CELL VOLUME 98.1 fL CALC (80.0-100.0); MEAN CORPUSCULAR HGB 32.1 pG CALC (26.0-32.0); MEAN CORPUSCULAR HGB CONC 32.8 g/dL CAL (32.0-36.0); MONO% 8.7 % (2-13); NEUT# 2.91 thou/uL (1.82-7.42); NEUT% 60.4 % (42-76); RED BLOOD COUNT 3.64 mill/uL (4.70-6.10)
[2022-02-24 11:16] LABS: HEMATOCRIT 35.7 % (39.0-50.0); HEMOGLOBIN 11.7 g/dl (14.0-18.0)
[2022-02-24 12:08] LABS: ALBUMIN 3.1 g/dL (3.2-5.0); ALKALINE PHOSPHATASE 778 u/l (38-126); ANION GAP 11 (6-22 (CALC)); BILIRUBIN, TOTAL 5.3 mg/dL (0.0-1.4); BUN 8 mg/dL (8-23); BUN/CREATININE RATIO 16 (12-20 (CALC)); CARBON DIOXIDE 29 mmol/l (22-30); CHLORIDE 96 mmol/l (95-108); CREATININE 0.5 mg/dL (0.7-1.3); GFR FOR AFR.AMER. > 60 ML/MIN (>=60 (CALC)); GFR OTHER RACES > 60 ML/MIN (>=60 (CALC)); POTASSIUM 4.5 mmol/l (3.5-5.1); SGOT/AST 128 u/l (19-48); SODIUM 132 mmol/l (137-146); TOTAL PROTEIN 9.3 g/dL (6.3-8.2)
[2022-02-24 16:31] LABS: URINE BLOOD DIPSTICK NEGATIVE (NEGATIVE); URINE GLUCOSE - DIPSTICK NEGATIVE (NEGATIVE); URINE KETONE NEGATIVE (NEGATIVE); URINE LEUK ESTERASE NEGATIVE (NEGATIVE); URINE PROTEIN - DIPSTICK NEGATIVE (NEG-TRACE)
[2022-02-24 16:35] LABS: URINE BILIRUBIN - DIPSTICK MODERATE (NEGATIVE); URINE NITRITE - DIPSTICK NEGATIVE (Negative)
[2022-02-24 16:36] LABS: URINE COLOR DK. YELLOW
[2022-02-25] VITALS (7 sets, daily range): BP systolic 101–127; BP diastolic 46–52
[2022-02-26 00:03] VITALS: BP 110/57
[2022-02-26 04:34] VITALS: BP 102/39
[2022-02-26 05:09] LABS: BASO% 0.6 % (0-3); EOS% 0.4 % (0-8); IMMATURE GRANULOCYTES 0.2 % (0.0-5.0); LYMPH% 21.4 % (15-41); MEAN CELL VOLUME 97.7 fL CALC (80.0-100.0); MEAN CORPUSCULAR HGB 32.6 pG CALC (26.0-32.0); MEAN CORPUSCULAR HGB CONC 33.3 g/dL CAL (32.0-36.0); MONO% 12.5 % (2-13); NEUT# 3.34 thou/uL (1.82-7.42); NEUT% 64.9 % (42-76); RED BLOOD COUNT 2.61 mill/uL (4.70-6.10); RED CELL DISTRI WIDTH 15.2 % (11.5-15.5)
[2022-02-26 05:16] LABS: HEMATOCRIT 25.5 % (39.0-50.0); HEMOGLOBIN 8.5 g/dl (14.0-18.0)
[2022-02-26 05:21] LABS: ALBUMIN 2.8 g/dL (3.2-5.0); ALKALINE PHOSPHATASE 621 u/l (38-126); BILIRUBIN, TOTAL 4.4 mg/dL (0.0-1.4); BUN 8 mg/dL (8-23); BUN/CREATININE RATIO 15 (12-20 (CALC)); CHLORIDE 96 mmol/l (95-108); CREATININE 0.5 mg/dL (0.7-1.3); GFR FOR AFR.AMER. > 60 ML/MIN (>=60 (CALC)); GFR OTHER RACES > 60 ML/MIN (>=60 (CALC)); POTASSIUM 4.2 mmol/l (3.5-5.1); SGOT/AST 139 u/l (19-48); SODIUM 137 mmol/l (137-146); TOTAL PROTEIN 8.2 g/dL (6.3-8.2)
[2022-02-26 05:24] LABS: ANION GAP 6 (6-22 (CALC)); CARBON DIOXIDE 39 mmol/l (22-30)
[2022-02-26 07:09] VITALS: BP 110/40
[2022-02-26 11:23] VITALS: BP 112/64
[2022-02-26 16:19] VITALS: BP 98/52
== END 2022-02-26 16:56 ==
LOC: ED 10:01 → ED-I 14:40 → ED 15:04 → MS2 15:05
PROVIDERS: Family Medicine; Nurse Practitioner Family; ADMIT Internal Medicine; ATTEND Internal Medicine
DX: R62.7 Adult failure to thrive (principal); R53.1 Weakness; K70.30 Alcoholic cirrhosis of liver without ascites; R11.2 Nausea with vomiting, unspecified; I11.0 Hypertensive heart disease with heart failure; I50.9 Heart failure, unspecified; I48.91 Unspecified atrial fibrillation; E11.9 Type 2 diabetes mellitus without complications; I25.10 Atherosclerotic heart disease of native coronary artery without angina pectoris; I42.8 Other cardiomyopathies; E80.6 Other disorders of bilirubin metabolism; R63.4 Abnormal weight loss; B18.2 Chronic viral hepatitis C; F10.10 Alcohol abuse, uncomplicated; F14.10 Cocaine abuse, uncomplicated; K21.9 Gastro-esophageal reflux disease without esophagitis; Z87.11 Personal history of peptic ulcer disease; Z86.73 Personal history of transient ischemic attack (TIA), and cerebral infarction without residual deficits; Z86.718 Personal history of other venous thrombosis and embolism; Z68.1 Body mass index [BMI] 19.9 or less, adult; Z20.822 Contact with and (suspected) exposure to COVID-19
CPT/HCPCS: G0378; J1650

== ENCOUNTER 2022-02-27 06:38 | Emergency (ER) | payer OTHER ==
[2022-02-27] VITALS (13 sets, daily range): BP systolic 119–151; BP diastolic 48–77
[~2022-02-27] VITALS: Ht 193 cm; Wt 48.5 kg
[2022-02-27 07:42] LABS: GFR FOR AFR.AMER. > 60 ML/MIN (>=60 (CALC)); GFR OTHER RACES > 60 ML/MIN (>=60 (CALC))
[2022-02-27 07:43] LABS: BASO% 0.6 % (0-3); EOS% 0.4 % (0-8); HEMATOCRIT 29.7 % (39.0-50.0); HEMOGLOBIN 9.9 g/dl (14.0-18.0); IMMATURE GRANULOCYTES 0.1 % (0.0-5.0); LYMPH% 20.9 % (15-41); MEAN CELL VOLUME 97.4 fL CALC (80.0-100.0); MEAN CORPUSCULAR HGB 32.5 pG CALC (26.0-32.0); MEAN CORPUSCULAR HGB CONC 33.3 g/dL CAL (32.0-36.0); MONO% 10.2 % (2-13); NEUT# 4.58 thou/uL (1.82-7.42); NEUT% 67.8 % (42-76); RED BLOOD COUNT 3.05 mill/uL (4.70-6.10); RED CELL DISTRI WIDTH 15.1 % (11.5-15.5)
[2022-02-27 07:58] LABS: ALKALINE PHOSPHATASE 643 u/l (38-126); ANION GAP 5 (6-22 (CALC)); BILIRUBIN, TOTAL 5.5 mg/dL (0.0-1.4); BUN 13 mg/dL (8-23); BUN/CREATININE RATIO 29 (12-20 (CALC)); CARBON DIOXIDE 38 mmol/l (22-30); CHLORIDE 93 mmol/l (95-108); CREATININE 0.4 mg/dL (0.7-1.3); GFR FOR AFR.AMER. > 60 ML/MIN (>=60 (CALC)); GFR OTHER RACES > 60 ML/MIN (>=60 (CALC)); LIPASE 33 u/l (23-300); POTASSIUM 4.3 mmol/l (3.5-5.1); SGOT/AST 140 u/l (19-48); SODIUM 132 mmol/l (137-146)
== END 2022-02-27 12:27 | disposition short-term general hospital (02) ==
LOC: ED 06:38
PROVIDERS: Family Medicine
DX: K92.2 Gastrointestinal hemorrhage, unspecified (principal); D64.9 Anemia, unspecified; R63.4 Abnormal weight loss; I11.0 Hypertensive heart disease with heart failure; I50.9 Heart failure, unspecified; K70.30 Alcoholic cirrhosis of liver without ascites; E11.9 Type 2 diabetes mellitus without complications; I48.91 Unspecified atrial fibrillation; B19.20 Unspecified viral hepatitis C without hepatic coma; K21.9 Gastro-esophageal reflux disease without esophagitis; F17.200 Nicotine dependence, unspecified, uncomplicated; Z86.718 Personal history of other venous thrombosis and embolism; Z86.73 Personal history of transient ischemic attack (TIA), and cerebral infarction without residual deficits; Z20.822 Contact with and (suspected) exposure to COVID-19
CPT/HCPCS: Q9967; S0164